=== PATIENT | male | born 1950 | race Caucasian/White ===

== ENCOUNTER 2016-12-21 15:44 | Inpatient (IN) | payer OTHER ==
--- NOTE | 2016-12-21 16:00 | PCM.HP ---
H&P History of Present Illness - General Date of Service: 12/21/16 Admit Problem/Dx: Pyelonephritis Source of Information: Patient, Family, Old Records, Provider, RN Notes Reviewed , Significant Other History Limitations: Reports: No Limitations - History of Present Illness Initial Comments - Free Text/Narative: This is a 66-year-old white male with past medical history of hypertension, hyperlipidemia, history of paroxysmal atrial fibrillation on digoxin and eliquis , and history of sick sinus syndrome status post pacemaker placement who comes in for a direct admit due to bilateral pyelonephritis. Patient was recently seen in his primary care's office for initial workup of urinary issues. Patient carries history of BPH and urinary retention. He follows Dr. Lopez for his urologic issues. Back in September, he was doing self catheterization and was eventually stop at the end of October. He is currently on Flomax and Proscar for maintenance medications. About 4 weeks ago, the patient had urinary tract infection. He was treated with antibiotic and 2 weeks follow up issues negative UA. However, recently he again developed the same symptoms associated with hematuria and was also noted to have a fever of 104. His initial workup from the clinical available documents shows a CBC remarkable for hemoglobin of 10.6, hematocrit of 32.2, neutrophil absolute counts of 8.1, and ESR of 95. His chemistry is remarkable for glucose of 139, sodium of 129, chloride of 93, albumin of 2.2 and alkaline phosphatase of 130. His UA shows moderate blood urine, proteinuria, positive nitrite/leukocyte esterase is large and WBC of 51-200 and many bacteria. Patient is being admitted for treatment of pyelonephritis. He is full code. Abdominal Pain Score (Numeric/FACES): 5 - Related Data Allergies/Adverse Reactions: Allergies Allergy/AdvReac Type Severity Reaction Status Date / Time No Known Allergies Allergy Verified 09/17/15 17:27 Home Medications: Home Meds Apixaban [Eliquis] 5 mg PO BID 02/07/15 [History] Cholecalciferol (Vitamin D3) [Vitamin D3] 1,000 unit PO DAILY 02/07/15 [History] Cyanocobalamin (Vitamin B12) [Vitamin B12] 1,000 mcg PO DAILY 02/07/15 [History] Finasteride [Proscar] 5 mg PO BEDTIME 02/07/15 [History] Glucosamine/D3/Boswellia Eliane [Osteo Bi-Flex Caplet] 2 each PO DAILY 02/07/15 [ History] Losartan/Hydrochlorothiazide [Losartan-HCTZ 50-12.5 MG] 25 mg PO DAILY 02/07/15 [History] Omeprazole [Prilosec] 40 mg PO DAILY 02/07/15 [History] Tamsulosin [Flomax] 0.4 mg PO BEDTIME 02/07/15 [History] rOPINIRole [Requip] 0.5 mg PO BID 09/17/15 [History] Allopurinol [Zyloprim] 100 mg PO DAILY 12/21/16 [History] Diltiazem [Dilacor XR] 240 mg PO DAILY 12/21/16 [History] Dulaglutide [Trulicity] 1.5 mg SQ TH 12/21/16 [History] Metoprolol Tartrate 25 mg PO QAM 12/21/16 [History] Metoprolol Tartrate 50 mg PO QPM 12/21/16 [History] Rosuvastatin Calcium [Crestor] 40 mg PO DAILY 12/21/16 [History] Past Medical History Cardiovascular History: Reports: Other (See Below) Other Cardiovascular History: aflutter Gastrointestinal History: Reports: GERD Genitourinary History: Reports: Other (See Below) Other Genitourinary History: enlarged prostate - Infectious Disease History Infectious Disease History: Reports: Measles, Mumps - Past Surgical History HEENT Surgical History: Reports: Tonsillectomy Other Musculoskeletal Surgeries/Procedures:: neck and back surgery Social & Family History - Family History Family Medical History: Noncontributory - Tobacco Use Smoking Status *Q: Former Smoker Years of Tobacco use: 40 Used Tobacco, but Quit: No Month Tobacco Last Used: 02/2015 Second Hand Smoke Exposure: No - Alcohol Use Days Per Week of Alcohol Use: 5 Number of Drinks Per Day: 3 Total Drinks Per Week: 15 - Recreational Drug Use Recreational Drug Use: No H&P Review of Systems - Review of Systems: Review Of Systems: See Below General: Reports: Malaise, Weakness, Fatigue, Decreased Appetite. Denies: Fever HEENT: Reports: No Symptoms Pulmonary: Denies: Shortness of Breath Cardiovascular: Denies: Chest Pain Gastrointestinal: Reports: Decreased Appetite, Other (gas and bloating). Denies : Abdominal Pain, Difficulty Swallowing, Nausea, Vomiting Genitourinary: Reports: Dysuria, Urgency, Hematuria, Retention, Flank Pain Musculoskeletal: Reports: No Symptoms Skin: Reports: No Symptoms. Denies: Rash, Erythema Psychiatric: Denies: Depression, Anxiety, Hallucinations, Suicidal Ideation Neurological: Reports: No Symptoms Hematologic/Lymphatic: Reports: No Symptoms Immunologic: Reports: No Symptoms Exam - Exam Exam: See Below - Vital Signs Weight: 87.997 kg - Exam General: Alert, Oriented, Cooperative. No: Mild Distress HEENT: Conjunctiva Clear, EACs Clear, EOMI, Hearing Intact, Mucosa Moist & [place] , Nares Patent, Normal Nasal Septum, Posterior Pharynx Clear, Pupils Equal, Pupils Reactive, TMs Clear Neck: Supple, Trachea Midline Lungs: Clear to Auscultation, Normal Respiratory Effort Cardiovascular: Regular Rate, Regular Rhythm GI/Abdominal Exam: Normal Bowel Sounds, Soft, Non-Tender, No Organomegaly, No Distention, No Abnormal Bruit, No Mass, Pelvis Stable, Other (tight and round) (Male) Exam: Deferred Rectal (Males) Exam: Deferred Back Exam: Normal Inspection, Decreased Range of Motion Extremities: Normal Inspection, Normal Range of Motion, Non-Tender, No Pedal Edema, Normal Capillary Refill Peripheral Pulses: 2+: Dorsalis Pedis (L), Dorsalis Pedis (R) Skin: Warm, Dry, Intact Neuro Extensive - Mental Status: Oriented x3, Normal Cognition, Memory Intact Neuro Extensive - Motor, Sensory, Reflexes: CN II-XII Intact, Normal Gait Psychiatric: Alert, Normal Affect, Normal Mood *Q Meaningful Use (ADM) - VTE *Q VTE Criteria *Q: - Stroke *Q Stroke Criteria *Q: - AMI *Q AMI Criteria *Q: Problem List Initiated/Reviewed/Updated: Yes Assessment/Plan Comment:: Assessment/Plan: Acute: Bilateral Pyelonephritis - CVA pos on both sides - Risk factors: BPH and Urinary Retention - He used to self-cath in September, was stopped at the end of October this year - He follows Dr. Lopez for his urologic issues - UA pos for UTI from the clinic - Start IV Levaquin - UA Cx/Sx BPH with Urinary Retention - Continue flomax and proscar Hyperglycemia with DM2 - BS 139 - On insulin regimen - A1C in AM - ISS and Accu-check Hyponatremia - Na 129 - He is on HCTZ, no SSRI - IV fluid hydration - Salt tablet 1 tab po x 3 doses only Gas/Bloating - Simethicone Q6 PRN - Dietary consult for less gas diet Chronic: PAF on eliquis, HR controlled HTN CAD HLD BPH DM2 Hx/o S3 S/p [employer] RLS Vit D and B12 Deficiency Plan: Admit to Med-Surg w/ Tele Routine AM Labs Resume Home Meds SW/CM for d/c planning Code status: 1
[2016-12-21] MEDS ORDERED: HYDROmorphone 1 MG/ML Syringe IVPUSH PRN (16:57)
[2016-12-21] MEDS ORDERED: Polyethylene Glycol 3350 Powder 17 GM Packet PO PRN (16:57)
[2016-12-21] MEDS ORDERED: Promethazine 12.5 MG in Sodium Chloride 0.9% 50 ML IV PRN (16:57)
[2016-12-21] MEDS ORDERED: Acetaminophen 325 MG Tab PO PRN (16:57)
[2016-12-21] MEDS ORDERED: Docusate Sodium 100 MG Cap PO PRN (16:57)
[2016-12-21] MEDS ORDERED: Bisacodyl 5 MG Tab PO PRN (16:57)
[2016-12-21] MEDS ORDERED: Acetaminophen/HYDROcodone 325-5 MG Tab PO PRN (16:57)
[2016-12-21] MEDS ORDERED: LORazepam 2 MG/ML MDV IV PRN (16:57)
[2016-12-21] MEDS ORDERED: Albuterol/Ipratropium 3.0-0.5 MG/3 ML Neb Soln NEB PRN (16:57)
[2016-12-21] MEDS ORDERED: Ondansetron 4 MG/2 ML SDV IV PRN (16:57)
[2016-12-21] MEDS ORDERED: Levofloxacin/Dextrose 5%-Water 750 MG in Premix Bag 1 BAG IV ONE (17:01)
[2016-12-21] MEDS ORDERED: Metoprolol Tartrate 5 MG/5 ML SDV IVPUSH PRN (17:01)
[2016-12-21] MEDS ORDERED: hydrALAZINE 20 MG/ML SDV IVPUSH PRN (17:01)
[2016-12-21] MEDS ORDERED: Simethicone 80 MG Tab.Chew PO PRN (17:06)
[2016-12-21] MEDS: Saccharomyces Boulardii (Probiotic) 250 MG Cap PO ONE ×2 (18:20→18:55)
[2016-12-21] MEDS: Phenazopyridine 95 MG Tab PO SCH (18:21)
[2016-12-21] MEDS ORDERED: Saccharomyces Boulardii (Probiotic) 250 MG Cap PO ONE (19:00)
[2016-12-21] MEDS ORDERED: DULAGLUTIDE 1.5 MG SQ SCH (19:30)
[2016-12-21] MEDS ORDERED: 50% Dextrose in Water 50 ML Syringe IVPUSH PRN (19:30)
[2016-12-21] MEDS: Sodium Chloride 0.9% 1,000 ML IV SCH (19:57)
[2016-12-21] MEDS: rOPINIRole 0.25 MG Tab PO SCH (20:20)
[2016-12-21] MEDS: Finasteride 5 MG Tab PO SCH (20:21)
[2016-12-21] MEDS: Tamsulosin 0.4 MG Cap.ER PO SCH (20:21)
[2016-12-21] MEDS: Apixaban 5 MG Tab PO SCH (20:21)
[2016-12-21] MEDS: Simvastatin 10 MG Tab PO SCH (20:22)
[2016-12-21] MEDS ORDERED: Metoprolol Tartrate 25 MG Tab PO SCH (21:00)
[2016-12-21] MEDS ORDERED: Potassium Chloride/Sodium Chloride Tab PO PRN (21:00)
[2016-12-21] MEDS: Temazepam 15 MG Cap PO PRN (21:04)
[2016-12-21] MEDS: Simethicone 80 MG Tab.Chew PO SCH (21:05)
[2016-12-21] MEDS: Insulin Aspart 100 Units/ML 3 ML Pen SUBCUT SCH (21:23)
[2016-12-21] MEDS ORDERED: rOPINIRole 0.5 MG Tab PO PRN (23:20)
[2016-12-22] MEDS: Sodium Chloride 0.9% 1,000 ML IV SCH ×3 (03:25→20:13)
[2016-12-22] MEDS: Pantoprazole 40 MG Tab.CR PO SCH (06:06)
[2016-12-22] MEDS: Simethicone 80 MG Tab.Chew PO SCH ×4 (06:06→21:28)
[2016-12-22] MEDS: Insulin Aspart 100 Units/ML 3 ML Pen SUBCUT SCH ×4 (06:10→21:23)
[2016-12-22] MEDS ORDERED: HYDROmorphone 0.5 MG/0.5 ML Syringe IVPUSH PRN (08:00)
[2016-12-22] MEDS ORDERED: Magnesium Sulfate/Water 2 GM in Premix Bag 1 BAG IV ONE (08:00)
[2016-12-22] MEDS ORDERED: Losartan 25 MG Tab PO SCH (09:00)
[2016-12-22] MEDS ORDERED: Diltiazem 240 MG Cap.ER PO SCH (09:00)
[2016-12-22] MEDS ORDERED: HYDROCHLOROTHIAZIDE PO SCH (09:00)
[2016-12-22] MEDS ORDERED: Digoxin 125 MCG Tab PO SCH (09:00)
[2016-12-22] MEDS ORDERED: OSTEO BI FLEX PO SCH (09:00)
[2016-12-22] MEDS ORDERED: Rosuvastatin 10 MG Tab PO SCH (09:00)
[2016-12-22] MEDS ORDERED: LOSARTAN PO SCH (09:00)
[2016-12-22] MEDS ORDERED: Levofloxacin/Dextrose 5%-Water 750 MG in Premix Bag 1 BAG IV SCH (09:00)
[2016-12-22] MEDS ORDERED: Cholecalciferol (Vitamin D3) 1,000 Unit Tab PO SCH (09:00)
[2016-12-22] MEDS: Apixaban 5 MG Tab PO SCH ×2 (09:38→21:29)
[2016-12-22] MEDS: Phenazopyridine 95 MG Tab PO SCH ×3 (09:38→18:34)
[2016-12-22] MEDS: Losartan 25 MG Tab PO SCH (09:39)
[2016-12-22] MEDS: Cyanocobalamin (Vitamin B12) 1,000 MCG Tab PO SCH (09:40)
[2016-12-22] MEDS: Metoprolol Tartrate 25 MG Tab PO SCH (09:40)
[2016-12-22] MEDS: Allopurinol 100 MG Tab PO SCH (09:41)
[2016-12-22] MEDS: Saccharomyces Boulardii (Probiotic) 250 MG Cap PO SCH (09:41)
[2016-12-22] MEDS: Cholecalciferol (Vitamin D3) 1,000 Unit Tab PO SCH (09:41)
[2016-12-22] MEDS ORDERED: rOPINIRole 0.25 MG Tab PO PRN (09:43)
--- NOTE | 2016-12-22 11:36 | PCM.PN ---
- General Info Date of Service: 12/22/16 Functional Status: Reports: Tolerating Diet, Ambulating - Review of Systems General: Reports: No Symptoms HEENT: Reports: No Symptoms Pulmonary: Reports: No Symptoms Cardiovascular: Reports: No Symptoms Gastrointestinal: Reports: Decreased Appetite, Other (bloating) Genitourinary: Reports: No Symptoms Musculoskeletal: Reports: No Symptoms Skin: Reports: No Symptoms Neurological: Reports: No Symptoms Psychiatric: Reports: No Symptoms - Patient Data Vitals - most recent: Last Vital Signs Temp 37.1 C 12/22/16 08:19 Pulse 68 12/22/16 09:40 Resp 15 12/22/16 08:19 BP 127/98 H 12/22/16 09:40 Pulse Ox 96 12/22/16 08:19 Weight - most recent: 86.137 kg I&O - last 24 hours: Intake & Output 12/21/16 12/22/16 12/22/16 22:59 06:59 14:59 Intake Total 240 3061 300 Output Total 1900 Balance 240 1161 300 Lab Results last 24 hrs: Laboratory Results - last 24 hr 12/21/16 12/22/16 12/22/16 Range/Units 20:48 05:53 05:53 WBC 7.36 (4.23-9.07) K/mm3 RBC 3.34 L (4.63-6.08) M/mm3 Hgb 9.6 L (13.7-17.5) gm/L Hct 28.5 L (40.1-51.0) % MCV 85.3 (79.0-92.2) fl MCH 28.7 (25.7-32.2) pg MCHC 33.7 (32.2-35.5) g/dl RDW Std Deviation 49.3 H (35.1-43.9) fL Plt Count 215 (163-337) K/mm3 MPV 10.0 (9.4-12.3) fl Neut % (Auto) 87.7 H (34.0-67.9) % Lymph % (Auto) 3.5 L (21.8-53.1) % [place] % (Auto) 8.2 (5.3-12.2) % Eos % (Auto) 0.3 L (0.8-7.0) Baso % (Auto) 0.0 L (0.1-1.2) % Neut # (Auto) 6.46 H (1.78-5.38) K/mm3 Lymph # (Auto) 0.26 L (1.32-3.57) K/mm3 [place] # (Auto) 0.60 (0.30-0.82) K/mm3 Eos # (Auto) 0.02 L (0.04-0.54) K/mm3 Baso # (Auto) 0.00 L (0.01-0.08) K/mm3 Manual Slide Review Abnormal smear Sodium 135 L (136-145) mEq/L Potassium 3.7 (3.5-5.1) mEq/L Chloride 102 (98-107) mEq/L Carbon Dioxide 25 (21-32) mEq/L Anion Gap 11.7 (5-15) BUN 14 (7-18) mg/dL Creatinine 1.3 (0.7-1.3) mg/dL Est Cr Clr Drug Dosing 57.41 mL/min Estimated GFR (MDRD) 56 (>60) mL/min BUN/Creatinine Ratio 10.8 L (14-18) Glucose 147 H (80-115) mg/dL POC Glucose 182 H (80-115) mg/dL Hemoglobin A1c (4.50-6.20) % Calcium 8.2 L (8.5-10.1) mg/dL Magnesium 1.5 L (1.8-2.4) mg/dl C-Reactive Protein 27.3 H* (<1.0) mg/dL 12/22/16 12/22/16 12/22/16 Range/Units 05:53 06:10 11:03 WBC (4.23-9.07) K/mm3 RBC (4.63-6.08) M/mm3 Hgb (13.7-17.5) gm/L Hct (40.1-51.0) % MCV (79.0-92.2) fl MCH (25.7-32.2) pg MCHC (32.2-35.5) g/dl RDW Std Deviation (35.1-43.9) fL Plt Count (163-337) K/mm3 MPV (9.4-12.3) fl Neut % (Auto) (34.0-67.9) % Lymph % (Auto) (21.8-53.1) % [place] % (Auto) (5.3-12.2) % Eos % (Auto) (0.8-7.0) Baso % (Auto) (0.1-1.2) % Neut # (Auto) (1.78-5.38) K/mm3 Lymph # (Auto) (1.32-3.57) K/mm3 [place] # (Auto) (0.30-0.82) K/mm3 Eos # (Auto) (0.04-0.54) K/mm3 Baso # (Auto) (0.01-0.08) K/mm3 Manual Slide Review Sodium (136-145) mEq/L Potassium (3.5-5.1) mEq/L Chloride (98-107) mEq/L Carbon Dioxide (21-32) mEq/L Anion Gap (5-15) BUN (7-18) mg/dL Creatinine (0.7-1.3) mg/dL Est Cr Clr Drug Dosing mL/min Estimated GFR (MDRD) (>60) mL/min BUN/Creatinine Ratio (14-18) Glucose (80-115) mg/dL POC Glucose 142 H 137 H (80-115) mg/dL Hemoglobin A1c 7.20 H (4.50-6.20) % Calcium (8.5-10.1) mg/dL Magnesium (1.8-2.4) mg/dl C-Reactive Protein (<1.0) mg/dL Buck Results last 24 hrs: Microbiology 12/21/16 18:00 Aerobic Blood Culture - Preliminary Blood - Venous - Lab Draw Gram Negative Rods Anaerobic Blood Culture - Preliminary Gram Negative Rods 12/21/16 17:50 Aerobic Blood Culture - Preliminary Blood - Venous Gram Negative Rods Anaerobic Blood Culture - Preliminary Gram Negative Rods Med Orders - Current: Current Medications Acetaminophen (Tylenol) 650 mg PO Q4H PRN PRN Reason: Pain (Mild 1-3)/fever Last Admin: 12/21/16 18:36 Dose: 650 mg Hydrocodone Bitart/Acetaminophen ([place] 325-5 Mg) 1 tab PO Q4H PRN PRN Reason: Pain (moderate 4-6) Albuterol/Ipratropium (Duoneb 3.0-0.5 Mg/3 Ml) 3 ml NEB Q4H PRN PRN Reason: Shortness Of Breath/wheezing Allopurinol (Zyloprim) 100 mg PO DAILY [facility] Last Admin: 12/22/16 09:41 Dose: 100 mg Apixaban (Eliquis) 5 mg PO BID [facility] Last Admin: 12/22/16 09:38 Dose: 5 mg Bisacodyl (Dulcolax) 5 mg PO DAILY PRN PRN Reason: Constipation Cholecalciferol (Vitamin D3) 2,000 units PO DAILY [facility] Last Admin: 12/22/16 09:41 Dose: 2,000 units Cyanocobalamin (Vitamin B12) 1,000 mcg PO DAILY [facility] Last Admin: 12/22/16 09:40 Dose: 1,000 mcg Dextrose/Water (Dextrose 50% In Water) 50 ml IVPUSH ASDIRECTED PRN PRN Reason: Hypoglycemia Digoxin (Lanoxin) 125 mcg PO DAILY@1200 [place] Diltiazem HCl (Dilacor Xr) 240 mg PO DAILY [facility] Docusate Sodium (Colace) 100 mg PO BID PRN PRN Reason: Constipation Finasteride (Proscar) 5 mg PO BEDTIME [facility] Last Admin: 12/21/16 20:21 Dose: 5 mg Hydralazine HCl (Apresoline) 20 mg IVPUSH Q4H PRN PRN Reason: Hypertension Hydromorphone HCl (Dilaudid) 0.25 mg IVPUSH Q2H PRN PRN Reason: Pain (severe 7-10) Levofloxacin/Dextrose 750 mg/ (Premix) 150 mls @ 100 mls/hr IV Q24H [facility] Promethazine HCl 12.5 mg/ (Sodium Chloride) 50.5 mls @ 100 mls/hr IV Q6H PRN PRN Reason: Nausea/Vomiting Sodium Chloride (Normal Saline) 1,000 mls @ 125 mls/hr IV ASDIRECTED [facility] Last Admin: 12/22/16 03:25 Dose: 125 mls/hr Insulin Aspart (Novolog) 0 unit SUBCUT QIDACANDBED [facility] PRN Reason: Protocol Last Admin: 12/22/16 11:05 Dose: Not Given Lorazepam (Ativan) 1 mg IV Q6H PRN PRN Reason: Anxiety Losartan Potassium (Cozaar) 25 mg PO DAILY [facility] Last Admin: 12/22/16 09:39 Dose: 25 mg Magnesium Sulfate (Pharmacy To Dose - Magnesium Replacement) 1 dose .XX ASDIRECTED [facility] Metoprolol Tartrate (Lopressor) 5 mg IVPUSH Q4H PRN PRN Reason: Tachycardia Metoprolol Tartrate (Lopressor) 25 mg PO QAM [facility] Last Admin: 12/22/16 09:40 Dose: 25 mg Metoprolol Tartrate (Lopressor) 50 mg PO QPM [facility] Ondansetron HCl (Zofran) 4 mg IV Q6H PRN PRN Reason: Nausea/Vomiting Oral Electrolytes (Thermotabs) 1 each PO TID PRN PRN Reason: Other Pantoprazole Sodium (Protonix) 40 mg PO DAILY@0700 [facility] Last Admin: 12/22/16 06:06 Dose: 40 mg Phenazopyridine HCl (Urinary Pain Relief) 95 mg PO TIDPC [facility] Last Admin: 12/22/16 09:38 Dose: 95 mg Polyethylene Glycol (Miralax) 17 gm PO DAILY PRN PRN Reason: Constipation Potassium Chloride (Pharmacy To Dose - Potassium Replacement) 1 dose .XX ASDIRECTED [facility] Ropinirole HCl (Requip) 0.5 mg PO BEDTIME [facility] Last Admin: 12/21/16 20:20 Dose: 0.5 mg Ropinirole HCl (Requip) 0.5 mg PO BEDTIME PRN PRN Reason: Other Rosuvastatin Calcium (Crestor) 40 mg PO BEDTIME [facility] Saccharomyces Boulardii (Florastor) 500 mg PO DAILY [facility] Last Admin: 12/22/16 09:41 Dose: 500 mg Senna/Docusate Sodium (Senna Plus) 1 tab PO BID PRN PRN Reason: Constipation Simethicone (Simethicone) 80 mg PO QIDACANDBED [facility] Last Admin: 12/22/16 06:06 Dose: 80 mg Simvastatin (Zocor) 10 mg PO BEDTIME [facility] Last Admin: 12/21/16 20:22 Dose: 10 mg Tamsulosin HCl (Flomax) 0.4 mg PO BEDTIME [facility] Last Admin: 12/21/16 20:21 Dose: 0.4 mg Temazepam (Restoril) 15 mg PO BEDTIME PRN PRN Reason: Sleep Last Admin: 12/21/16 21:04 Dose: 15 mg Discontinued Medications Digoxin (Lanoxin) 125 mcg PO DAILY [facility] Diltiazem HCl (Dilacor Xr) 240 mg PO DAILY [facility] Last Admin: 12/22/16 09:31 Dose: Not Given Hydromorphone HCl (Dilaudid) 0.25 mg IVPUSH Q2H PRN PRN Reason: Pain (severe 7-10) Last Admin: 12/21/16 20:10 Dose: 0.25 mg Levofloxacin/Dextrose 750 mg/ (Premix) 150 mls @ 100 mls/hr IV ONETIME ONE Stop: 12/21/16 18:30 Last Admin: 12/21/16 18:15 Dose: 100 mls/hr Magnesium Sulfate 2 gm/ Premix 50 mls @ 25 mls/hr IV ONETIME ONE Stop: 12/22/16 09:59 Last Admin: 12/22/16 09:46 Dose: 25 mls/hr Losartan Potassium (Cozaar) 25 mg PO DAILY [facility] Metoprolol Tartrate (Lopressor) 12.5 mg PO BID [facility] Last Admin: 12/21/16 20:22 Dose: 12.5 mg NonformTrulicity (1.5 Mg) 1.5 mg SQ TH [facility] Last Admin: 12/21/16 22:20 Dose: Not Given Ropinirole HCl (Requip) 0.5 mg PO BEDTIME PRN PRN Reason: Other Rosuvastatin Calcium (Crestor) 40 mg PO DAILY [facility] Saccharomyces Boulardii (Florastor) 500 mg PO ONETIME ONE Stop: 12/21/16 17:06 Last Admin: 12/21/16 18:55 Dose: 250 mg Saccharomyces Boulardii (Florastor) 250 mg PO ONETIME ONE Stop: 12/21/16 19:01 Last Admin: 12/21/16 19:27 Dose: 250 mg Simethicone (Simethicone) 80 mg PO Q6H PRN PRN Reason: Gas - Exam Quality Assessment: DVT prophylaxis General: alert, oriented, cooperative, no acute distress HEENT: Pupils equal, Pupils reactive, EOMI, Mucous membr. moist/pink Neck: supple, trachea midline Lungs: Normal Respiratory Effort Cardiovascular: Regular Rate, Regular Rhythm GI/Abdominal Exam: Normal Bowel Sounds, Soft, Non-Tender, No Organomegaly (Male) Exam: Deferred Back Exam: Normal Inspection Extremities: Normal Inspection Skin: warm Neurological: no new focal deficit, normal speech Psy/Mental Status: alert, normal affect, normal mood - Problem List Review Problem List Initiated/Reviewed/Updated: Yes - Plan Plan:: Assessment/Plan: Acute: Bilateral Pyelonephritis - CVA pos on both sides - Risk factors: BPH and Urinary Retention - He used to self-cath in September, was stopped at the end of October this year - He follows Dr. Lopez for his urologic issues - UA pos for UTI from the clinic - Start IV Levaquin - UA Cx/Sx-->G neg rods BPH with Urinary Retention - Continue flomax and proscar Hyperglycemia with DM2 - BS 139 - On insulin regimen - A1C in AM - ISS and Accu-check Hyponatremia - Na 129 - He is on HCTZ, no SSRI - IV fluid hydration - Salt tablet 1 tab po x 3 doses only Gas/Bloating - Simethicone Q6 PRN - Dietary consult for less gas diet Chronic: PAF on eliquis, HR controlled HTN CAD HLD BPH DM2 Hx/o S3 S/p [employer] RLS Vit D and B12 Deficiency Plan: Med-Surg w/ Tele IV ATBs Routine AM Labs Resume Home Meds SW/CM for d/c planning Code status: 1
[2016-12-22] MEDS: Digoxin 125 MCG Tab PO SCH (11:39)
[2016-12-22] MEDS: Diltiazem 240 MG Cap.ER PO SCH (16:37)
[2016-12-22] MEDS: Simvastatin 10 MG Tab PO SCH (21:28)
[2016-12-22] MEDS: Tamsulosin 0.4 MG Cap.ER PO SCH (21:28)
[2016-12-22] MEDS: rOPINIRole 0.25 MG Tab PO SCH (21:28)
[2016-12-22] MEDS: Metoprolol Tartrate 50 MG Tab PO SCH (21:29)
[2016-12-22] MEDS: Rosuvastatin 10 MG Tab PO SCH (21:29)
[2016-12-22] MEDS: Finasteride 5 MG Tab PO SCH (21:29)
[2016-12-23] MEDS: Sodium Chloride 0.9% 1,000 ML IV SCH (04:20)
[2016-12-23] MEDS: Simethicone 80 MG Tab.Chew PO SCH ×4 (06:20→21:18)
[2016-12-23] MEDS: Pantoprazole 40 MG Tab.CR PO SCH (06:20)
[2016-12-23] MEDS: Insulin Aspart 100 Units/ML 3 ML Pen SUBCUT SCH ×4 (06:26→21:02)
[2016-12-23] MEDS: Cholecalciferol (Vitamin D3) 1,000 Unit Tab PO SCH (09:13)
[2016-12-23] MEDS: Cyanocobalamin (Vitamin B12) 1,000 MCG Tab PO SCH (09:13)
[2016-12-23] MEDS: Phenazopyridine 95 MG Tab PO SCH ×2 (09:13→13:19)
[2016-12-23] MEDS: Saccharomyces Boulardii (Probiotic) 250 MG Cap PO SCH (09:13)
[2016-12-23] MEDS: Allopurinol 100 MG Tab PO SCH (09:14)
[2016-12-23] MEDS: Apixaban 5 MG Tab PO SCH ×2 (09:14→21:00)
[2016-12-23] MEDS: Losartan 25 MG Tab PO SCH (09:23)
[2016-12-23] MEDS: Metoprolol Tartrate 25 MG Tab PO SCH (09:23)
[2016-12-23] MEDS: cefTRIAXone 2 GM in Sodium Chloride 0.9% 100 ML IV SCH (09:34)
[2016-12-23] MEDS: Digoxin 125 MCG Tab PO SCH (12:00)
[2016-12-23] MEDS: Metoclopramide 10 MG/2 ML SDV IVPUSH SCH ×2 (13:30→20:54)
[2016-12-23] MEDS: Diltiazem 240 MG Cap.ER PO SCH (15:32)
[2016-12-23] MEDS: Metoprolol Tartrate 50 MG Tab PO SCH (21:00)
[2016-12-23] MEDS: Rosuvastatin 10 MG Tab PO SCH (21:00)
[2016-12-23] MEDS: Tamsulosin 0.4 MG Cap.ER PO SCH (21:01)
[2016-12-23] MEDS: Simvastatin 10 MG Tab PO SCH (21:01)
[2016-12-23] MEDS: Temazepam 15 MG Cap PO PRN (21:01)
[2016-12-23] MEDS: Finasteride 5 MG Tab PO SCH (21:01)
[2016-12-23] MEDS: rOPINIRole 0.25 MG Tab PO SCH (21:01)
[2016-12-24] MEDS: Metoclopramide 10 MG/2 ML SDV IVPUSH SCH ×4 (02:46→20:40)
[2016-12-24] MEDS: Simethicone 80 MG Tab.Chew PO SCH ×4 (06:29→21:02)
[2016-12-24] MEDS: Pantoprazole 40 MG Tab.CR PO SCH (06:29)
[2016-12-24] MEDS: Insulin Aspart 100 Units/ML 3 ML Pen SUBCUT SCH ×4 (06:30→21:01)
[2016-12-24] MEDS: Losartan 25 MG Tab PO SCH (08:53)
[2016-12-24] MEDS: Cyanocobalamin (Vitamin B12) 1,000 MCG Tab PO SCH (08:53)
[2016-12-24] MEDS: Cholecalciferol (Vitamin D3) 1,000 Unit Tab PO SCH (08:53)
[2016-12-24] MEDS: Allopurinol 100 MG Tab PO SCH (08:54)
[2016-12-24] MEDS: Metoprolol Tartrate 25 MG Tab PO SCH (08:54)
[2016-12-24] MEDS: Apixaban 5 MG Tab PO SCH ×2 (08:55→20:40)
[2016-12-24] MEDS: Saccharomyces Boulardii (Probiotic) 250 MG Cap PO SCH (08:55)
[2016-12-24] MEDS: cefTRIAXone 2 GM in Sodium Chloride 0.9% 100 ML IV SCH (09:18)
[2016-12-24] MEDS: Digoxin 125 MCG Tab PO SCH (11:02)
[2016-12-24] MEDS ORDERED: Magnesium Sulfate/Water 2 GM in Premix Bag 1 BAG IV ONE (12:56)
--- NOTE | 2016-12-24 13:07 | PCM.PN ---
- General Info Date of Service: 12/24/16 Functional Status: Reports: Pain Controlled, Tolerating Diet (decreased intake with bloating), Ambulating, Urinating - Review of Systems General: Reports: No Symptoms HEENT: Reports: No Symptoms Pulmonary: Reports: No Symptoms Cardiovascular: Reports: No Symptoms Gastrointestinal: Reports: No Symptoms Genitourinary: Reports: No Symptoms Musculoskeletal: Reports: No Symptoms Skin: Reports: No Symptoms Neurological: Reports: No Symptoms Psychiatric: Reports: No Symptoms - Patient Data Vitals - most recent: Last Vital Signs Temp 35.9 C 12/24/16 09:35 Pulse 58 L 12/24/16 09:35 Resp 14 12/24/16 09:35 BP 136/72 12/24/16 09:35 Pulse Ox 97 12/24/16 09:35 Weight - most recent: 86.137 kg I&O - last 24 hours: Intake & Output 12/23/16 12/24/16 12/24/16 22:59 06:59 14:59 Intake Total 1900 900 Output Total 2150 1550 Balance -250 -650 Lab Results last 24 hrs: Laboratory Results - last 24 hr 12/23/16 12/23/16 12/24/16 Range/Units 17:04 20:52 05:45 WBC 5.97 (4.23-9.07) K/mm3 RBC 3.46 L (4.63-6.08) M/mm3 Hgb 9.6 L (13.7-17.5) gm/L Hct 29.8 L (40.1-51.0) % MCV 86.1 (79.0-92.2) fl MCH 27.7 (25.7-32.2) pg MCHC 32.2 (32.2-35.5) g/dl RDW Std Deviation 50.3 H (35.1-43.9) fL Plt Count 318 (163-337) K/mm3 MPV 9.4 (9.4-12.3) fl Neut % (Auto) 81.5 H (34.0-67.9) % Lymph % (Auto) 8.0 L (21.8-53.1) % [place] % (Auto) 9.2 (5.3-12.2) % Eos % (Auto) 1.0 (0.8-7.0) Baso % (Auto) 0.0 L (0.1-1.2) % Neut # (Auto) 4.86 (1.78-5.38) K/mm3 Lymph # (Auto) 0.48 L (1.32-3.57) K/mm3 Hunt # (Auto) 0.55 (0.30-0.82) K/mm3 Eos # (Auto) 0.06 (0.04-0.54) K/mm3 Baso # (Auto) 0.00 L (0.01-0.08) K/mm3 Manual Slide Review Abnormal smear Sodium (136-145) mEq/L Potassium (3.5-5.1) mEq/L Chloride (98-107) mEq/L Carbon Dioxide (21-32) mEq/L Anion Gap (5-15) BUN (7-18) mg/dL Creatinine (0.7-1.3) mg/dL Est Cr Clr Drug Dosing mL/min Estimated GFR (MDRD) (>60) mL/min BUN/Creatinine Ratio (14-18) Glucose (80-115) mg/dL POC Glucose 108 143 H (80-115) mg/dL Calcium (8.5-10.1) mg/dL Magnesium (1.8-2.4) mg/dl 12/24/16 12/24/16 12/24/16 Range/Units 05:45 06:29 10:58 WBC (4.23-9.07) K/mm3 RBC (4.63-6.08) M/mm3 Hgb (13.7-17.5) gm/L Hct (40.1-51.0) % MCV (79.0-92.2) fl MCH (25.7-32.2) pg MCHC (32.2-35.5) g/dl RDW Std Deviation (35.1-43.9) fL Plt Count (163-337) K/mm3 MPV (9.4-12.3) fl Neut % (Auto) (34.0-67.9) % Lymph % (Auto) (21.8-53.1) % Hunt % (Auto) (5.3-12.2) % Eos % (Auto) (0.8-7.0) Baso % (Auto) (0.1-1.2) % Neut # (Auto) (1.78-5.38) K/mm3 Lymph # (Auto) (1.32-3.57) K/mm3 Hunt # (Auto) (0.30-0.82) K/mm3 Eos # (Auto) (0.04-0.54) K/mm3 Baso # (Auto) (0.01-0.08) K/mm3 Manual Slide Review Sodium 140 (136-145) mEq/L Potassium 3.4 L (3.5-5.1) mEq/L Chloride 105 (98-107) mEq/L Carbon Dioxide 25 (21-32) mEq/L Anion Gap 13.4 (5-15) BUN 8 (7-18) mg/dL Creatinine 1.2 (0.7-1.3) mg/dL Est Cr Clr Drug Dosing 62.19 mL/min Estimated GFR (MDRD) > 60 (>60) mL/min BUN/Creatinine Ratio 6.7 L (14-18) Glucose 123 H (80-115) mg/dL POC Glucose 121 H 126 H (80-115) mg/dL Calcium 8.4 L (8.5-10.1) mg/dL Magnesium 1.8 (1.8-2.4) mg/dl Buck Results last 24 hrs: Microbiology 12/21/16 18:00 Aerobic Blood Culture - Final Blood - Venous - Lab Draw Escherichia Coli Anaerobic Blood Culture - Final Escherichia Coli 12/21/16 17:50 Aerobic Blood Culture - Final Blood - Venous Escherichia Coli Anaerobic Blood Culture - Final Escherichia Coli Med Orders - Current: Current Medications Acetaminophen (Tylenol) 650 mg PO Q4H PRN PRN Reason: Pain (Mild 1-3)/fever Last Admin: 12/21/16 18:36 Dose: 650 mg Hydrocodone Bitart/Acetaminophen ([place] 325-5 Mg) 1 tab PO Q4H PRN PRN Reason: Pain (moderate 4-6) Last Admin: 12/22/16 21:34 Dose: 1 tab Albuterol/Ipratropium (Duoneb 3.0-0.5 Mg/3 Ml) 3 ml NEB Q4H PRN PRN Reason: Shortness Of Breath/wheezing Allopurinol (Zyloprim) 100 mg PO DAILY [facility] Last Admin: 12/24/16 08:54 Dose: 100 mg Apixaban (Eliquis) 5 mg PO BID [facility] Last Admin: 12/24/16 08:55 Dose: 5 mg Bisacodyl (Dulcolax) 5 mg PO DAILY PRN PRN Reason: Constipation Cholecalciferol (Vitamin D3) 2,000 units PO DAILY [facility] Last Admin: 12/24/16 08:53 Dose: 2,000 units Cyanocobalamin (Vitamin B12) 1,000 mcg PO DAILY [facility] Last Admin: 12/24/16 08:53 Dose: 1,000 mcg Dextrose/Water (Dextrose 50% In Water) 50 ml IVPUSH ASDIRECTED PRN PRN Reason: Hypoglycemia Digoxin (Lanoxin) 125 mcg PO DAILY@1200 [facility] Last Admin: 12/24/16 11:02 Dose: 125 mcg Diltiazem HCl (Dilacor Xr) 240 mg PO DAILY@1600 [facility] Last Admin: 12/23/16 15:32 Dose: 240 mg Docusate Sodium (Colace) 100 mg PO BID PRN PRN Reason: Constipation Finasteride (Proscar) 5 mg PO BEDTIME [facility] Last Admin: 12/23/16 21:01 Dose: 5 mg Hydralazine HCl (Apresoline) 20 mg IVPUSH Q4H PRN PRN Reason: Hypertension Hydromorphone HCl (Dilaudid) 0.25 mg IVPUSH Q2H PRN PRN Reason: Pain (severe 7-10) Ceftriaxone Sodium 2 gm/ (Sodium Chloride) 100 mls @ 200 mls/hr IV Q24H [facility] Last Admin: 12/24/16 09:18 Dose: 200 mls/hr Magnesium Sulfate 2 gm/ Premix 50 mls @ 25 mls/hr IV ONETIME ONE Stop: 12/24/16 14:55 Insulin Aspart (Novolog) 0 unit SUBCUT QIDACANDBED [facility] PRN Reason: Protocol Last Admin: 12/24/16 11:01 Dose: Not Given Lorazepam (Ativan) 1 mg IV Q6H PRN PRN Reason: Anxiety Losartan Potassium (Cozaar) 25 mg PO DAILY [facility] Last Admin: 12/24/16 08:53 Dose: 25 mg Metoclopramide HCl (Reglan) 10 mg IVPUSH Q6H [facility] Last Admin: 12/24/16 08:53 Dose: 10 mg Metoprolol Tartrate (Lopressor) 5 mg IVPUSH Q4H PRN PRN Reason: Tachycardia Metoprolol Tartrate (Lopressor) 25 mg PO QAM [facility] Last Admin: 12/24/16 08:54 Dose: 25 mg Metoprolol Tartrate (Lopressor) 50 mg PO BEDTIME [facility] Last Admin: 12/23/16 21:00 Dose: 50 mg Ondansetron HCl (Zofran) 4 mg IV Q6H PRN PRN Reason: Nausea/Vomiting Last Admin: 12/22/16 16:53 Dose: 4 mg Pantoprazole Sodium (Protonix) 40 mg PO DAILY@0700 [facility] [place] Last Admin: 12/24/16 06:29 Dose: 40 mg Polyethylene Glycol (Miralax) 17 gm PO DAILY PRN PRN Reason: Constipation Ropinirole HCl (Requip) 0.5 mg PO BEDTIME [facility] Last Admin: 12/23/16 21:01 Dose: 0.5 mg Ropinirole HCl (Requip) 0.5 mg PO BEDTIME PRN PRN Reason: Other Rosuvastatin Calcium (Crestor) 40 mg PO BEDTIME [facility] [place] Last Admin: 12/23/16 21:00 Dose: 40 mg Saccharomyces Boulardii (Florastor) 500 mg PO DAILY [facility] [place] Last Admin: 12/24/16 08:55 Dose: 500 mg Senna/Docusate Sodium (Senna Plus) 1 tab PO BID PRN PRN Reason: Constipation Simethicone (Simethicone) 80 mg PO QIDACANDBED [facility] [place] Last Admin: 12/24/16 11:02 Dose: 80 mg Simvastatin (Zocor) 10 mg PO BEDTIME [facility] Last Admin: 12/23/16 21:01 Dose: 10 mg Tamsulosin HCl (Flomax) 0.4 mg PO BEDTIME [facility] Last Admin: 12/23/16 21:01 Dose: 0.4 mg Temazepam (Restoril) 15 mg PO BEDTIME PRN PRN Reason: Sleep Last Admin: 12/23/16 21:01 Dose: 15 mg Discontinued Medications Digoxin (Lanoxin) 125 mcg PO DAILY [facility] Diltiazem HCl (Dilacor Xr) 240 mg PO DAILY [facility] Last Admin: 12/22/16 09:31 Dose: Not Given Hydromorphone HCl (Dilaudid) 0.25 mg IVPUSH Q2H PRN PRN Reason: Pain (severe 7-10) Last Admin: 12/21/16 20:10 Dose: 0.25 mg Levofloxacin/Dextrose 750 mg/ (Premix) 150 mls @ 100 mls/hr IV Q24H [facility] Last Admin: 12/22/16 11:44 Dose: 100 mls/hr Levofloxacin/Dextrose 750 mg/ (Premix) 150 mls @ 100 mls/hr IV ONETIME ONE Stop: 12/21/16 18:30 Last Admin: 12/21/16 18:15 Dose: 100 mls/hr Promethazine HCl 12.5 mg/ (Sodium Chloride) 50.5 mls @ 100 mls/hr IV Q6H PRN PRN Reason: Nausea/Vomiting Sodium Chloride (Normal Saline) 1,000 mls @ 125 mls/hr IV ASDIRECTED [facility] Last Admin: 12/23/16 04:20 Dose: 125 mls/hr Magnesium Sulfate 2 gm/ Premix 50 mls @ 25 mls/hr IV ONETIME ONE Stop: 12/22/16 09:59 Last Admin: 12/22/16 09:46 Dose: 25 mls/hr Losartan Potassium (Cozaar) 25 mg PO DAILY [facility] Magnesium Sulfate (Pharmacy To Dose - Magnesium Replacement) 1 dose .XX ASDIRECTED [facility] Metoprolol Tartrate (Lopressor) 12.5 mg PO BID [facility] Last Admin: 12/21/16 20:22 Dose: 12.5 mg NonformTrulicity (1.5 Mg) 1.5 mg SQ TH [facility] Last Admin: 12/21/16 22:20 Dose: Not Given Oral Electrolytes (Thermotabs) 1 each PO TID PRN PRN Reason: Other Phenazopyridine HCl (Urinary Pain Relief) 95 mg PO TIDPC [facility] [place] Last Admin: 12/23/16 13:19 Dose: Not Given Potassium Chloride (Pharmacy To Dose - Potassium Replacement) 1 dose .XX ASDIRECTED [facility] Ropinirole HCl (Requip) 0.5 mg PO BEDTIME PRN PRN Reason: Other Rosuvastatin Calcium (Crestor) 40 mg PO DAILY [facility] Saccharomyces Boulardii (Florastor) 500 mg PO ONETIME ONE Stop: 12/21/16 17:06 Last Admin: 12/21/16 18:55 Dose: 250 mg Saccharomyces Boulardii (Florastor) 250 mg PO ONETIME ONE Stop: 12/21/16 19:01 Last Admin: 12/21/16 19:27 Dose: 250 mg Simethicone (Simethicone) 80 mg PO Q6H PRN PRN Reason: Gas - Exam Quality Assessment: DVT prophylaxis General: alert, oriented, cooperative, no acute distress HEENT: Pupils equal, Pupils reactive, EOMI, Mucous membr. moist/pink Neck: supple, trachea midline Lungs: Normal Respiratory Effort, Rhonchi Cardiovascular: Regular Rate GI/Abdominal Exam: Normal Bowel Sounds, Soft, Non-Tender, No Organomegaly, No Distention (Male) Exam: Deferred Back Exam: Normal Inspection Extremities: Normal Inspection Skin: warm Neurological: no new focal deficit Psy/Mental Status: alert, normal affect, normal mood - Problem List Review Problem List Initiated/Reviewed/Updated: Yes - My Orders Last 24 Hours: My Active Orders 12/23/16 14:00 Metoclopramide [Reglan] 10 mg IVPUSH Q6H 12/24/16 09:24 Notify Provider Consults [RC] ASDIRECTED Consult to Physician [CONS] Routine 12/24/16 12:56 Magnesium Sulfate/Water [Magnesium Sulfate 2 GM in Water 50 ML] 2 gm Premix Bag 1 bag IV ONETIME 12/25/16 05:00 CRP [C-REACTIVE PROTEIN] [CHEM] Routine DIGOXIN [CHEM] Routine - Plan Plan:: Assessment/Plan: Acute: Bilateral Pyelonephritis - Risk factors: BPH and Urinary Retention - He used to self-cath in September, was stopped at the end of October this year - He follows Dr. 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
--- NOTE | 2016-12-24 13:08 | PCM.PN ---
- General Info Date of Service: 12/23/16 Functional Status: Reports: Pain Controlled, Ambulating, Urinating - Review of Systems General: Reports: No Symptoms HEENT: Reports: No Symptoms Pulmonary: Reports: No Symptoms Cardiovascular: Reports: No Symptoms Gastrointestinal: Reports: No Symptoms Genitourinary: Reports: No Symptoms Musculoskeletal: Reports: No Symptoms Skin: Reports: No Symptoms Neurological: Reports: No Symptoms Psychiatric: Reports: No Symptoms - Patient Data Vitals - most recent: Last Vital Signs Temp 35.9 C 12/24/16 09:35 Pulse 58 L 12/24/16 09:35 Resp 14 12/24/16 09:35 BP 136/72 12/24/16 09:35 Pulse Ox 97 12/24/16 09:35 Weight - most recent: 86.137 kg I&O - last 24 hours: Intake & Output 12/23/16 12/24/16 12/24/16 22:59 06:59 14:59 Intake Total 1900 900 Output Total 2150 1550 Balance -250 -650 Lab Results last 24 hrs: Laboratory Results - last 24 hr 12/23/16 12/23/16 12/24/16 Range/Units 17:04 20:52 05:45 WBC 5.97 (4.23-9.07) K/mm3 RBC 3.46 L (4.63-6.08) M/mm3 Hgb 9.6 L (13.7-17.5) gm/L Hct 29.8 L (40.1-51.0) % MCV 86.1 (79.0-92.2) fl MCH 27.7 (25.7-32.2) pg MCHC 32.2 (32.2-35.5) g/dl RDW Std Deviation 50.3 H (35.1-43.9) fL Plt Count 318 (163-337) K/mm3 MPV 9.4 (9.4-12.3) fl Neut % (Auto) 81.5 H (34.0-67.9) % Lymph % (Auto) 8.0 L (21.8-53.1) % [place] % (Auto) 9.2 (5.3-12.2) % Eos % (Auto) 1.0 (0.8-7.0) Baso % (Auto) 0.0 L (0.1-1.2) % Neut # (Auto) 4.86 (1.78-5.38) K/mm3 Lymph # (Auto) 0.48 L (1.32-3.57) K/mm3 [place] # (Auto) 0.55 (0.30-0.82) K/mm3 Eos # (Auto) 0.06 (0.04-0.54) K/mm3 Baso # (Auto) 0.00 L (0.01-0.08) K/mm3 Manual Slide Review Abnormal smear Sodium (136-145) mEq/L Potassium (3.5-5.1) mEq/L Chloride (98-107) mEq/L Carbon Dioxide (21-32) mEq/L Anion Gap (5-15) BUN (7-18) mg/dL Creatinine (0.7-1.3) mg/dL Est Cr Clr Drug Dosing mL/min Estimated GFR (MDRD) (>60) mL/min BUN/Creatinine Ratio (14-18) Glucose (80-115) mg/dL POC Glucose 108 143 H (80-115) mg/dL Calcium (8.5-10.1) mg/dL Magnesium (1.8-2.4) mg/dl 12/24/16 12/24/16 12/24/16 Range/Units 05:45 06:29 10:58 WBC (4.23-9.07) K/mm3 RBC (4.63-6.08) M/mm3 Hgb (13.7-17.5) gm/L Hct (40.1-51.0) % MCV (79.0-92.2) fl MCH (25.7-32.2) pg MCHC (32.2-35.5) g/dl RDW Std Deviation (35.1-43.9) fL Plt Count (163-337) K/mm3 MPV (9.4-12.3) fl Neut % (Auto) (34.0-67.9) % Lymph % (Auto) (21.8-53.1) % [place] % (Auto) (5.3-12.2) % Eos % (Auto) (0.8-7.0) Baso % (Auto) (0.1-1.2) % Neut # (Auto) (1.78-5.38) K/mm3 Lymph # (Auto) (1.32-3.57) K/mm3 [place] # (Auto) (0.30-0.82) K/mm3 Eos # (Auto) (0.04-0.54) K/mm3 Baso # (Auto) (0.01-0.08) K/mm3 Manual Slide Review Sodium 140 (136-145) mEq/L Potassium 3.4 L (3.5-5.1) mEq/L Chloride 105 (98-107) mEq/L Carbon Dioxide 25 (21-32) mEq/L Anion Gap 13.4 (5-15) BUN 8 (7-18) mg/dL Creatinine 1.2 (0.7-1.3) mg/dL Est Cr Clr Drug Dosing 62.19 mL/min Estimated GFR (MDRD) > 60 (>60) mL/min BUN/Creatinine Ratio 6.7 L (14-18) Glucose 123 H (80-115) mg/dL POC Glucose 121 H 126 H (80-115) mg/dL Calcium 8.4 L (8.5-10.1) mg/dL Magnesium 1.8 (1.8-2.4) mg/dl Buck Results last 24 hrs: Microbiology 12/21/16 18:00 Aerobic Blood Culture - Final Blood - Venous - Lab Draw Escherichia Coli Anaerobic Blood Culture - Final Escherichia Coli 12/21/16 17:50 Aerobic Blood Culture - Final Blood - Venous Escherichia Coli Anaerobic Blood Culture - Final Escherichia Coli Med Orders - Current: Current Medications Acetaminophen (Tylenol) 650 mg PO Q4H PRN PRN Reason: Pain (Mild 1-3)/fever Last Admin: 12/21/16 18:36 Dose: 650 mg Hydrocodone Bitart/Acetaminophen ([place] 325-5 Mg) 1 tab PO Q4H PRN PRN Reason: Pain (moderate 4-6) Last Admin: 12/22/16 21:34 Dose: 1 tab Albuterol/Ipratropium (Duoneb 3.0-0.5 Mg/3 Ml) 3 ml NEB Q4H PRN PRN Reason: Shortness Of Breath/wheezing Allopurinol (Zyloprim) 100 mg PO DAILY [facility] Last Admin: 12/24/16 08:54 Dose: 100 mg Apixaban (Eliquis) 5 mg PO BID [facility] Last Admin: 12/24/16 08:55 Dose: 5 mg Bisacodyl (Dulcolax) 5 mg PO DAILY PRN PRN Reason: Constipation Cholecalciferol (Vitamin D3) 2,000 units PO DAILY [facility] Last Admin: 12/24/16 08:53 Dose: 2,000 units Cyanocobalamin (Vitamin B12) 1,000 mcg PO DAILY [facility] Last Admin: 12/24/16 08:53 Dose: 1,000 mcg Dextrose/Water (Dextrose 50% In Water) 50 ml IVPUSH ASDIRECTED PRN PRN Reason: Hypoglycemia Digoxin (Lanoxin) 125 mcg PO DAILY@1200 [facility] Last Admin: 12/24/16 11:02 Dose: 125 mcg Diltiazem HCl (Dilacor Xr) 240 mg PO DAILY@1600 [facility] Last Admin: 12/23/16 15:32 Dose: 240 mg Docusate Sodium (Colace) 100 mg PO BID PRN PRN Reason: Constipation Finasteride (Proscar) 5 mg PO BEDTIME [facility] Last Admin: 12/23/16 21:01 Dose: 5 mg Hydralazine HCl (Apresoline) 20 mg IVPUSH Q4H PRN PRN Reason: Hypertension Hydromorphone HCl (Dilaudid) 0.25 mg IVPUSH Q2H PRN PRN Reason: Pain (severe 7-10) Ceftriaxone Sodium 2 gm/ (Sodium Chloride) 100 mls @ 200 mls/hr IV Q24H [facility] Last Admin: 12/24/16 09:18 Dose: 200 mls/hr Magnesium Sulfate 2 gm/ Premix 50 mls @ 25 mls/hr IV ONETIME ONE Stop: 12/24/16 14:55 Insulin Aspart (Novolog) 0 unit SUBCUT QIDACANDBED [facility] PRN Reason: Protocol Last Admin: 12/24/16 11:01 Dose: Not Given Lorazepam (Ativan) 1 mg IV Q6H PRN PRN Reason: Anxiety Losartan Potassium (Cozaar) 25 mg PO DAILY [facility] Last Admin: 12/24/16 08:53 Dose: 25 mg Metoclopramide HCl (Reglan) 10 mg IVPUSH Q6H [facility] Last Admin: 12/24/16 08:53 Dose: 10 mg Metoprolol Tartrate (Lopressor) 5 mg IVPUSH Q4H PRN PRN Reason: Tachycardia Metoprolol Tartrate (Lopressor) 25 mg PO QAM [facility] Last Admin: 12/24/16 08:54 Dose: 25 mg Metoprolol Tartrate (Lopressor) 50 mg PO BEDTIME [facility] Last Admin: 12/23/16 21:00 Dose: 50 mg Ondansetron HCl (Zofran) 4 mg IV Q6H PRN PRN Reason: Nausea/Vomiting Last Admin: 12/22/16 16:53 Dose: 4 mg Pantoprazole Sodium (Protonix) 40 mg PO DAILY@0700 [facility] Last Admin: 12/24/16 06:29 Dose: 40 mg Polyethylene Glycol (Miralax) 17 gm PO DAILY PRN PRN Reason: Constipation Ropinirole HCl (Requip) 0.5 mg PO BEDTIME [facility] Last Admin: 12/23/16 21:01 Dose: 0.5 mg Ropinirole HCl (Requip) 0.5 mg PO BEDTIME PRN PRN Reason: Other Rosuvastatin Calcium (Crestor) 40 mg PO BEDTIME [facility] Last Admin: 12/23/16 21:00 Dose: 40 mg Saccharomyces Boulardii (Florastor) 500 mg PO DAILY [facility] Last Admin: 12/24/16 08:55 Dose: 500 mg Senna/Docusate Sodium (Senna Plus) 1 tab PO BID PRN PRN Reason: Constipation Simethicone (Simethicone) 80 mg PO QIDACANDBED [facility] Last Admin: 12/24/16 11:02 Dose: 80 mg Simvastatin (Zocor) 10 mg PO BEDTIME [facility] Last Admin: 12/23/16 21:01 Dose: 10 mg Tamsulosin HCl (Flomax) 0.4 mg PO BEDTIME [facility] Last Admin: 12/23/16 21:01 Dose: 0.4 mg Temazepam (Restoril) 15 mg PO BEDTIME PRN PRN Reason: Sleep Last Admin: 12/23/16 21:01 Dose: 15 mg Discontinued Medications Digoxin (Lanoxin) 125 mcg PO DAILY [facility] Diltiazem HCl (Dilacor Xr) 240 mg PO DAILY [facility] Last Admin: 12/22/16 09:31 Dose: Not Given Hydromorphone HCl (Dilaudid) 0.25 mg IVPUSH Q2H PRN PRN Reason: Pain (severe 7-10) Last Admin: 12/21/16 20:10 Dose: 0.25 mg Levofloxacin/Dextrose 750 mg/ (Premix) 150 mls @ 100 mls/hr IV Q24H [facility] Last Admin: 12/22/16 11:44 Dose: 100 mls/hr Levofloxacin/Dextrose 750 mg/ (Premix) 150 mls @ 100 mls/hr IV ONETIME ONE Stop: 12/21/16 18:30 Last Admin: 12/21/16 18:15 Dose: 100 mls/hr Promethazine HCl 12.5 mg/ (Sodium Chloride) 50.5 mls @ 100 mls/hr IV Q6H PRN PRN Reason: Nausea/Vomiting Sodium Chloride (Normal Saline) 1,000 mls @ 125 mls/hr IV ASDIRECTED [facility] Last Admin: 12/23/16 04:20 Dose: 125 mls/hr Magnesium Sulfate 2 gm/ Premix 50 mls @ 25 mls/hr IV ONETIME ONE Stop: 12/22/16 09:59 Last Admin: 12/22/16 09:46 Dose: 25 mls/hr Losartan Potassium (Cozaar) 25 mg PO DAILY [facility] Magnesium Sulfate (Pharmacy To Dose - Magnesium Replacement) 1 dose .XX ASDIRECTED [facility] Metoprolol Tartrate (Lopressor) 12.5 mg PO BID [facility] Last Admin: 12/21/16 20:22 Dose: 12.5 mg NonformTrulicity (1.5 Mg) 1.5 mg SQ TH [facility] Last Admin: 12/21/16 22:20 Dose: Not Given Oral Electrolytes (Thermotabs) 1 each PO TID PRN PRN Reason: Other Phenazopyridine HCl (Urinary Pain Relief) 95 mg PO TIDPC [facility] Last Admin: 12/23/16 13:19 Dose: Not Given Potassium Chloride (Pharmacy To Dose - Potassium Replacement) 1 dose .XX ASDIRECTED [facility] Ropinirole HCl (Requip) 0.5 mg PO BEDTIME PRN PRN Reason: Other Rosuvastatin Calcium (Crestor) 40 mg PO DAILY [facility] Saccharomyces Boulardii (Florastor) 500 mg PO ONETIME ONE Stop: 12/21/16 17:06 Last Admin: 12/21/16 18:55 Dose: 250 mg Saccharomyces Boulardii (Florastor) 250 mg PO ONETIME ONE Stop: 12/21/16 19:01 Last Admin: 12/21/16 19:27 Dose: 250 mg Simethicone (Simethicone) 80 mg PO Q6H PRN PRN Reason: Gas - Exam Quality Assessment: DVT prophylaxis General: alert, oriented, cooperative, no acute distress HEENT: Pupils equal, Pupils reactive, EOMI, Mucous membr. moist/pink Neck: supple, trachea midline Lungs: Normal Respiratory Effort Cardiovascular: Regular Rate GI/Abdominal Exam: Normal Bowel Sounds, Soft, Non-Tender, No Organomegaly, Distended (Male) Exam: Deferred Back Exam: Normal Inspection Extremities: Normal Inspection, No Pedal Edema Skin: warm Neurological: no new focal deficit Psy/Mental Status: alert, normal affect, normal mood - Problem List Review Problem List Initiated/Reviewed/Updated: Yes - My Orders Last 24 Hours: My Active Orders 12/23/16 14:00 Metoclopramide [Reglan] 10 mg IVPUSH Q6H 12/24/16 09:24 Notify Provider Consults [RC] ASDIRECTED Consult to Physician [CONS] Routine 12/24/16 12:56 Magnesium Sulfate/Water [Magnesium Sulfate 2 GM in Water 50 ML] 2 gm Premix Bag 1 bag IV ONETIME 12/25/16 05:00 CRP [C-REACTIVE PROTEIN] [CHEM] Routine DIGOXIN [CHEM] Routine - Plan Plan:: Assessment/Plan: Acute: Bilateral Pyelonephritis - Risk factors: BPH and Urinary Retention - He used to self-cath in September, was stopped at the end of October this year - He follows Dr. Lopez for his urologic issues - UA pos for UTI from the clinic - Start IV Levaquin-->stopped organism is resistant; started Rocephin - UA Cx/Sx-->G neg rods BPH with Urinary Retention - Continue flomax and proscar Hyperglycemia with DM2 - BS 139 - On insulin regimen - A1C in AM - ISS and Accu-check Hyponatremia - Na 129 - He is on HCTZ, no SSRI - IV fluid hydration - Salt tablet 1 tab po x 3 doses only Gas/Bloating - Simethicone Q6 PRN - Dietary consult for less gas diet Chronic: PAF on eliquis, HR controlled HTN CAD HLD BPH DM2 Hx/o S3 S/p [employer] RLS Vit D and B12 Deficiency Plan: Gen surg for blaoting, will see Dr Taylor as an outpatient Med-Surg w/ Tele IV ATBs Routine AM Labs Resume Home Meds SW/CM for d/c planning Code status: 1 LOS.96 hours for treatment, return to work likely
[2016-12-24] MEDS: Diltiazem 240 MG Cap.ER PO SCH (16:12)
[2016-12-24] MEDS ORDERED: Potassium Chloride 20 MEQ Tab.ER PO ONE (17:06)
[2016-12-24] MEDS: Simvastatin 10 MG Tab PO SCH (20:38)
[2016-12-24] MEDS: Metoprolol Tartrate 50 MG Tab PO SCH (20:39)
[2016-12-24] MEDS: Finasteride 5 MG Tab PO SCH (20:39)
[2016-12-24] MEDS: Rosuvastatin 10 MG Tab PO SCH (20:40)
[2016-12-24] MEDS: rOPINIRole 0.25 MG Tab PO SCH (20:40)
[2016-12-24] MEDS: Tamsulosin 0.4 MG Cap.ER PO SCH (20:40)
[2016-12-24] MEDS: Temazepam 15 MG Cap PO PRN (21:03)
[2016-12-25] MEDS: Metoclopramide 10 MG/2 ML SDV IVPUSH SCH ×2 (02:10→08:15)
[2016-12-25] MEDS: Simethicone 80 MG Tab.Chew PO SCH ×4 (06:09→21:01)
[2016-12-25] MEDS: Pantoprazole 40 MG Tab.CR PO SCH (06:09)
[2016-12-25] MEDS: Insulin Aspart 100 Units/ML 3 ML Pen SUBCUT SCH ×4 (06:10→21:15)
[2016-12-25] MEDS: Cholecalciferol (Vitamin D3) 1,000 Unit Tab PO SCH (08:11)
[2016-12-25] MEDS: Losartan 25 MG Tab PO SCH (08:11)
[2016-12-25] MEDS: Allopurinol 100 MG Tab PO SCH (08:11)
[2016-12-25] MEDS: Metoprolol Tartrate 25 MG Tab PO SCH (08:14)
[2016-12-25] MEDS: Cyanocobalamin (Vitamin B12) 1,000 MCG Tab PO SCH (08:14)
[2016-12-25] MEDS: Apixaban 5 MG Tab PO SCH ×2 (08:15→21:00)
[2016-12-25] MEDS: cefTRIAXone 2 GM in Sodium Chloride 0.9% 100 ML IV SCH (08:15)
[2016-12-25] MEDS: Saccharomyces Boulardii (Probiotic) 250 MG Cap PO SCH (08:20)
[2016-12-25] MEDS ORDERED: Metoclopramide 10 MG/2 ML SDV IVPUSH PRN (11:48)
[2016-12-25] MEDS: Digoxin 125 MCG Tab PO SCH (11:49)
--- NOTE | 2016-12-25 14:40 | PCM.PN ---
- General Info Date of Service: 12/25/16 Functional Status: Reports: Pain Controlled, Tolerating Diet, Ambulating, Urinating - Review of Systems General: Reports: No Symptoms HEENT: Reports: No Symptoms Pulmonary: Reports: No Symptoms Cardiovascular: Reports: No Symptoms Gastrointestinal: Reports: No Symptoms Genitourinary: Reports: No Symptoms Musculoskeletal: Reports: No Symptoms Skin: Reports: No Symptoms Neurological: Reports: No Symptoms Psychiatric: Reports: No Symptoms - Patient Data Vitals - most recent: Last Vital Signs Temp 35.9 C 12/25/16 12:19 Pulse 59 L 12/25/16 12:20 Resp 12 12/25/16 12:19 BP 134/88 12/25/16 12:20 Pulse Ox 99 12/25/16 12:20 Weight - most recent: 87.18 kg I&O - last 24 hours: Intake & Output 12/24/16 12/25/16 12/25/16 22:59 06:59 14:59 Intake Total 1320 1000 300 Output Total 1600 3425 Balance -280 -2425 300 Lab Results last 24 hrs: Laboratory Results - last 24 hr 12/24/16 12/24/16 12/25/16 Range/Units 17:23 20:56 05:43 WBC 6.34 (4.23-9.07) K/mm3 RBC 3.64 L (4.63-6.08) M/mm3 Hgb 10.3 L (13.7-17.5) gm/L Hct 31.5 L (40.1-51.0) % MCV 86.5 (79.0-92.2) fl MCH 28.3 (25.7-32.2) pg MCHC 32.7 (32.2-35.5) g/dl RDW Std Deviation 50.9 H (35.1-43.9) fL Plt Count 406 H (163-337) K/mm3 MPV 9.4 (9.4-12.3) fl Neut % (Auto) 80.3 H (34.0-67.9) % Lymph % (Auto) 8.7 L (21.8-53.1) % [place] % (Auto) 9.3 (5.3-12.2) % Eos % (Auto) 0.9 (0.8-7.0) Baso % (Auto) 0.2 (0.1-1.2) % Neut # (Auto) 5.09 (1.78-5.38) K/mm3 Lymph # (Auto) 0.55 L (1.32-3.57) K/mm3 [place] # (Auto) 0.59 (0.30-0.82) K/mm3 Eos # (Auto) 0.06 (0.04-0.54) K/mm3 Baso # (Auto) 0.01 (0.01-0.08) K/mm3 Manual Slide Review Abnormal smear Sodium (136-145) mEq/L Potassium (3.5-5.1) mEq/L Chloride (98-107) mEq/L Carbon Dioxide (21-32) mEq/L Anion Gap (5-15) BUN (7-18) mg/dL Creatinine (0.7-1.3) mg/dL Est Cr Clr Drug Dosing mL/min Estimated GFR (MDRD) (>60) mL/min BUN/Creatinine Ratio (14-18) Glucose (80-115) mg/dL POC Glucose 96 191 H (80-115) mg/dL Calcium (8.5-10.1) mg/dL Magnesium (1.8-2.4) mg/dl AST (15-37) U/L ALT (16-63) U/L C-Reactive Protein (<1.0) mg/dL Digoxin (0.9-2.0) ng/mL 12/25/16 12/25/16 12/25/16 Range/Units 05:43 05:43 06:08 WBC (4.23-9.07) K/mm3 RBC (4.63-6.08) M/mm3 Hgb (13.7-17.5) gm/L Hct (40.1-51.0) % MCV (79.0-92.2) fl MCH (25.7-32.2) pg MCHC (32.2-35.5) g/dl RDW Std Deviation (35.1-43.9) fL Plt Count (163-337) K/mm3 MPV (9.4-12.3) fl Neut % (Auto) (34.0-67.9) % Lymph % (Auto) (21.8-53.1) % [place] % (Auto) (5.3-12.2) % Eos % (Auto) (0.8-7.0) Baso % (Auto) (0.1-1.2) % Neut # (Auto) (1.78-5.38) K/mm3 Lymph # (Auto) (1.32-3.57) K/mm3 [place] # (Auto) (0.30-0.82) K/mm3 Eos # (Auto) (0.04-0.54) K/mm3 Baso # (Auto) (0.01-0.08) K/mm3 Manual Slide Review Sodium 142 (136-145) mEq/L Potassium 4.1 (3.5-5.1) mEq/L Chloride 105 (98-107) mEq/L Carbon Dioxide 27 (21-32) mEq/L Anion Gap 14.1 (5-15) BUN 7 (7-18) mg/dL Creatinine 1.1 (0.7-1.3) mg/dL Est Cr Clr Drug Dosing 67.84 mL/min Estimated GFR (MDRD) > 60 (>60) mL/min BUN/Creatinine Ratio 6.4 L (14-18) Glucose 109 (80-115) mg/dL POC Glucose 120 H (80-115) mg/dL Calcium 9.0 (8.5-10.1) mg/dL Magnesium 2.2 (1.8-2.4) mg/dl AST 45 H (15-37) U/L ALT 76 H (16-63) U/L C-Reactive Protein 15.4 H* (<1.0) mg/dL Digoxin 0.4 L (0.9-2.0) ng/mL 12/25/16 Range/Units 11:49 WBC (4.23-9.07) K/mm3 RBC (4.63-6.08) M/mm3 Hgb (13.7-17.5) gm/L Hct (40.1-51.0) % MCV (79.0-92.2) fl MCH (25.7-32.2) pg MCHC (32.2-35.5) g/dl RDW Std Deviation (35.1-43.9) fL Plt Count (163-337) K/mm3 MPV (9.4-12.3) fl Neut % (Auto) (34.0-67.9) % Lymph % (Auto) (21.8-53.1) % [place] % (Auto) (5.3-12.2) % Eos % (Auto) (0.8-7.0) Baso % (Auto) (0.1-1.2) % Neut # (Auto) (1.78-5.38) K/mm3 Lymph # (Auto) (1.32-3.57) K/mm3 [place] # (Auto) (0.30-0.82) K/mm3 Eos # (Auto) (0.04-0.54) K/mm3 Baso # (Auto) (0.01-0.08) K/mm3 Manual Slide Review Sodium (136-145) mEq/L Potassium (3.5-5.1) mEq/L Chloride (98-107) mEq/L Carbon Dioxide (21-32) mEq/L Anion Gap (5-15) BUN (7-18) mg/dL Creatinine (0.7-1.3) mg/dL Est Cr Clr Drug Dosing mL/min Estimated GFR (MDRD) (>60) mL/min BUN/Creatinine Ratio (14-18) Glucose (80-115) mg/dL POC Glucose 109 (80-115) mg/dL Calcium (8.5-10.1) mg/dL Magnesium (1.8-2.4) mg/dl AST (15-37) U/L ALT (16-63) U/L C-Reactive Protein (<1.0) mg/dL Digoxin (0.9-2.0) ng/mL Buck Results last 24 hrs: Microbiology 12/21/16 18:00 Aerobic Blood Culture - Final Blood - Venous - Lab Draw Escherichia Coli Anaerobic Blood Culture - Final Escherichia Coli 12/21/16 17:50 Aerobic Blood Culture - Final Blood - Venous Escherichia Coli Anaerobic Blood Culture - Final Escherichia Coli Med Orders - Current: Current Medications Acetaminophen (Tylenol) 650 mg PO Q4H PRN PRN Reason: Pain (Mild 1-3)/fever Last Admin: 12/21/16 18:36 Dose: 650 mg Hydrocodone Bitart/Acetaminophen ([place] 325-5 Mg) 1 tab PO Q4H PRN PRN Reason: Pain (moderate 4-6) Last Admin: 12/22/16 21:34 Dose: 1 tab Albuterol/Ipratropium (Duoneb 3.0-0.5 Mg/3 Ml) 3 ml NEB Q4H PRN PRN Reason: Shortness Of Breath/wheezing Allopurinol (Zyloprim) 100 mg PO DAILY [facility] Last Admin: 12/25/16 08:11 Dose: 100 mg Apixaban (Eliquis) 5 mg PO BID [facility] Last Admin: 12/25/16 08:15 Dose: 5 mg Bisacodyl (Dulcolax) 5 mg PO DAILY PRN PRN Reason: Constipation Cholecalciferol (Vitamin D3) 2,000 units PO DAILY [facility] Last Admin: 12/25/16 08:11 Dose: 2,000 units Cyanocobalamin (Vitamin B12) 1,000 mcg PO DAILY [facility] Last Admin: 12/25/16 08:14 Dose: 1,000 mcg Dextrose/Water (Dextrose 50% In Water) 50 ml IVPUSH ASDIRECTED PRN PRN Reason: Hypoglycemia Digoxin (Lanoxin) 125 mcg PO DAILY@1200 [facility] Last Admin: 12/25/16 11:49 Dose: 125 mcg Diltiazem HCl (Dilacor Xr) 240 mg PO DAILY@1600 [facility] Last Admin: 12/24/16 16:12 Dose: 240 mg Docusate Sodium (Colace) 100 mg PO BID PRN PRN Reason: Constipation Finasteride (Proscar) 5 mg PO BEDTIME [facility] Last Admin: 12/24/16 20:39 Dose: 5 mg Hydralazine HCl (Apresoline) 20 mg IVPUSH Q4H PRN PRN Reason: Hypertension Hydromorphone HCl (Dilaudid) 0.25 mg IVPUSH Q2H PRN PRN Reason: Pain (severe 7-10) Ceftriaxone Sodium 2 gm/ (Sodium Chloride) 100 mls @ 200 mls/hr IV Q24H [facility] Last Admin: 12/25/16 08:15 Dose: 200 mls/hr Insulin Aspart (Novolog) 0 unit SUBCUT QIDACANDBED [facility] PRN Reason: Protocol Last Admin: 12/25/16 11:50 Dose: Not Given Lorazepam (Ativan) 1 mg IV Q6H PRN PRN Reason: Anxiety Losartan Potassium (Cozaar) 25 mg PO DAILY [facility] Last Admin: 12/25/16 08:11 Dose: 25 mg Metoclopramide HCl (Reglan) 10 mg IVPUSH Q6H PRN PRN Reason: GASTROPARESIS Metoprolol Tartrate (Lopressor) 5 mg IVPUSH Q4H PRN PRN Reason: Tachycardia Metoprolol Tartrate (Lopressor) 25 mg PO QAM [facility] Last Admin: 12/25/16 08:14 Dose: 25 mg Metoprolol Tartrate (Lopressor) 50 mg PO BEDTIME [facility] Last Admin: 12/24/16 20:39 Dose: 50 mg Ondansetron HCl (Zofran) 4 mg IV Q6H PRN PRN Reason: Nausea/Vomiting Last Admin: 12/22/16 16:53 Dose: 4 mg Pantoprazole Sodium (Protonix) 40 mg PO DAILY@0700 [facility] Last Admin: 12/25/16 06:09 Dose: 40 mg Polyethylene Glycol (Miralax) 17 gm PO DAILY PRN PRN Reason: Constipation Last Admin: 12/24/16 17:24 Dose: 17 gm Ropinirole HCl (Requip) 0.5 mg PO BEDTIME [facility] Last Admin: 12/24/16 20:40 Dose: 0.5 mg Ropinirole HCl (Requip) 0.5 mg PO BEDTIME PRN PRN Reason: Other Rosuvastatin Calcium (Crestor) 40 mg PO BEDTIME [facility] Last Admin: 12/24/16 20:40 Dose: 40 mg Saccharomyces Boulardii (Florastor) 500 mg PO DAILY [facility] Last Admin: 12/25/16 08:20 Dose: 500 mg Senna/Docusate Sodium (Senna Plus) 1 tab PO BID PRN PRN Reason: Constipation Simethicone (Simethicone) 80 mg PO QIDACANDBED [facility] Last Admin: 12/25/16 11:53 Dose: 80 mg Tamsulosin HCl (Flomax) 0.4 mg PO BEDTIME [facility] Last Admin: 12/24/16 20:40 Dose: 0.4 mg Temazepam (Restoril) 15 mg PO BEDTIME PRN PRN Reason: Sleep Last Admin: 12/24/16 21:03 Dose: 15 mg Discontinued Medications Digoxin (Lanoxin) 125 mcg PO DAILY [facility] Diltiazem HCl (Dilacor Xr) 240 mg PO DAILY [facility] Last Admin: 12/22/16 09:31 Dose: Not Given Hydromorphone HCl (Dilaudid) 0.25 mg IVPUSH Q2H PRN PRN Reason: Pain (severe 7-10) Last Admin: 12/21/16 20:10 Dose: 0.25 mg Levofloxacin/Dextrose 750 mg/ (Premix) 150 mls @ 100 mls/hr IV Q24H [facility] Last Admin: 12/22/16 11:44 Dose: 100 mls/hr Levofloxacin/Dextrose 750 mg/ (Premix) 150 mls @ 100 mls/hr IV ONETIME ONE Stop: 12/21/16 18:30 Last Admin: 12/21/16 18:15 Dose: 100 mls/hr Promethazine HCl 12.5 mg/ (Sodium Chloride) 50.5 mls @ 100 mls/hr IV Q6H PRN PRN Reason: Nausea/Vomiting Sodium Chloride (Normal Saline) 1,000 mls @ 125 mls/hr IV ASDIRECTED [facility] Last Admin: 12/23/16 04:20 Dose: 125 mls/hr Magnesium Sulfate 2 gm/ Premix 50 mls @ 25 mls/hr IV ONETIME ONE Stop: 12/22/16 09:59 Last Admin: 12/22/16 09:46 Dose: 25 mls/hr Magnesium Sulfate 2 gm/ Premix 50 mls @ 25 mls/hr IV ONETIME ONE Stop: 12/24/16 14:55 Last Admin: 12/24/16 13:14 Dose: 25 mls/hr Losartan Potassium (Cozaar) 25 mg PO DAILY [facility] Magnesium Sulfate (Pharmacy To Dose - Magnesium Replacement) 1 dose .XX ASDIRECTED [facility] Metoclopramide HCl (Reglan) 10 mg IVPUSH Q6H [facility] Last Admin: 12/25/16 08:15 Dose: 10 mg Metoprolol Tartrate (Lopressor) 12.5 mg PO BID [facility] Last Admin: 12/21/16 20:22 Dose: 12.5 mg NonformTrulicity (1.5 Mg) 1.5 mg SQ TH [facility] Last Admin: 12/21/16 22:20 Dose: Not Given Oral Electrolytes (Thermotabs) 1 each PO TID PRN PRN Reason: Other Phenazopyridine HCl (Urinary Pain Relief) 95 mg PO TIDPC [facility] Last Admin: 12/23/16 13:19 Dose: Not Given Potassium Chloride (Pharmacy To Dose - Potassium Replacement) 1 dose .XX ASDIRECTED [facility] Potassium Chloride (Klor-Con M20) 40 meq PO ONETIME ONE Stop: 12/24/16 17:07 Last Admin: 12/24/16 17:34 Dose: 40 meq Ropinirole HCl (Requip) 0.5 mg PO BEDTIME PRN PRN Reason: Other Rosuvastatin Calcium (Crestor) 40 mg PO DAILY [facility] Saccharomyces Boulardii (Florastor) 500 mg PO ONETIME ONE Stop: 12/21/16 17:06 Last Admin: 12/21/16 18:55 Dose: 250 mg Saccharomyces Boulardii (Florastor) 250 mg PO ONETIME ONE Stop: 12/21/16 19:01 Last Admin: 12/21/16 19:27 Dose: 250 mg Simethicone (Simethicone) 80 mg PO Q6H PRN PRN Reason: Gas Simvastatin (Zocor) 10 mg PO BEDTIME [facility] Last Admin: 12/24/16 20:38 Dose: Not Given - Exam Quality Assessment: Supplemental Oxygen, DVT Prophylaxis General: alert, oriented, cooperative, no acute distress HEENT: Pupils Equal, Pupils Reactive, EOMI, Mucous Membr. Moist/[place] Neck: supple, trachea midline, no JVD Lungs: Normal Respiratory Effort Cardiovascular: Regular Rate GI/Abdominal Exam: Normal Bowel Sounds, Soft, Non-Tender, No Organomegaly, Distended (Male) Exam: Deferred Back Exam: Normal Inspection Extremities: Normal Inspection Skin: warm Neurological: no new focal deficit, normal gait, normal speech Psy/Mental Status: alert, normal affect, normal mood - Problem List Review Problem List Initiated/Reviewed/Updated: Yes - My Orders Last 24 Hours: My Active Orders 12/25/16 11:48 Metoclopramide [Reglan] 10 mg IVPUSH Q6H PRN - Plan Plan:: Assessment/Plan: Acute: Bilateral Pyelonephritis - Risk factors: BPH and Urinary Retention - He used to self-cath in September, was stopped at the end of October this year - He follows Dr. 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
[2016-12-25] MEDS: Diltiazem 240 MG Cap.ER PO SCH (16:20)
[2016-12-25] MEDS: rOPINIRole 0.25 MG Tab PO SCH (21:00)
[2016-12-25] MEDS: Finasteride 5 MG Tab PO SCH (21:01)
[2016-12-25] MEDS: Rosuvastatin 10 MG Tab PO SCH (21:01)
[2016-12-25] MEDS: Metoprolol Tartrate 50 MG Tab PO SCH (21:01)
[2016-12-25] MEDS: Tamsulosin 0.4 MG Cap.ER PO SCH (21:01)
[2016-12-25] MEDS: Temazepam 15 MG Cap PO PRN (21:15)
[2016-12-26] MEDS: Cholecalciferol (Vitamin D3) 1,000 Unit Tab PO SCH (08:23)
[2016-12-26] MEDS: Saccharomyces Boulardii (Probiotic) 250 MG Cap PO SCH (08:23)
[2016-12-26] MEDS: Metoprolol Tartrate 25 MG Tab PO SCH (08:24)
[2016-12-26] MEDS: Simethicone 80 MG Tab.Chew PO SCH ×4 (08:24→21:16)
[2016-12-26] MEDS: Apixaban 5 MG Tab PO SCH ×2 (08:25→21:13)
[2016-12-26] MEDS: Cyanocobalamin (Vitamin B12) 1,000 MCG Tab PO SCH (08:25)
[2016-12-26] MEDS: Pantoprazole 40 MG Tab.CR PO SCH (08:25)
[2016-12-26] MEDS: Allopurinol 100 MG Tab PO SCH (08:25)
[2016-12-26] MEDS: Losartan 25 MG Tab PO SCH (08:26)
[2016-12-26] MEDS: cefTRIAXone 2 GM in Sodium Chloride 0.9% 100 ML IV SCH (08:26)
[2016-12-26] MEDS: Insulin Aspart 100 Units/ML 3 ML Pen SUBCUT SCH ×4 (08:27→21:16)
[2016-12-26] MEDS: Digoxin 125 MCG Tab PO SCH (12:07)
--- NOTE | 2016-12-26 14:50 | PCM.PN ---
- General Info Date of Service: 12/26/16 Functional Status: Reports: Pain Controlled, Tolerating Diet, Ambulating - Review of Systems General: Reports: No Symptoms HEENT: Reports: No Symptoms Pulmonary: Reports: No Symptoms Cardiovascular: Reports: No Symptoms Gastrointestinal: Reports: Other (distended) Genitourinary: Reports: No Symptoms Musculoskeletal: Reports: No Symptoms Skin: Reports: No Symptoms Neurological: Reports: No Symptoms Psychiatric: Reports: No Symptoms - Patient Data Vitals - Most Recent: Last Vital Signs Temp 36.2 C 12/26/16 12:26 Pulse 63 12/26/16 12:26 Resp 14 12/26/16 12:26 BP 119/75 12/26/16 12:26 Pulse Ox 98 12/26/16 12:26 Weight - Most Recent: 87.18 kg I&O - Last 24 Hours: Intake & Output 12/25/16 12/26/16 12/26/16 22:59 06:59 14:59 Intake Total 1480 700 300 Output Total 1300 1371 Balance 180 -671 300 Lab Results Last 24 Hours: Laboratory Results - last 24 hr 12/25/16 12/25/16 12/26/16 Range/Units 16:22 21:08 05:50 Sodium 142 (136-145) mEq/L Potassium 3.7 (3.5-5.1) mEq/L Chloride 105 (98-107) mEq/L Carbon Dioxide 27 (21-32) mEq/L Anion Gap 13.7 (5-15) BUN 9 (7-18) mg/dL Creatinine 1.0 (0.7-1.3) mg/dL Est Cr Clr Drug Dosing 74.63 mL/min Estimated GFR (MDRD) > 60 (>60) mL/min BUN/Creatinine Ratio 9.0 L (14-18) Glucose 121 H (80-115) mg/dL POC Glucose 150 H 110 (80-115) mg/dL Calcium 8.7 (8.5-10.1) mg/dL Magnesium 1.9 (1.8-2.4) mg/dl 12/26/16 12/26/16 Range/Units 06:01 10:58 Sodium (136-145) mEq/L Potassium (3.5-5.1) mEq/L Chloride (98-107) mEq/L Carbon Dioxide (21-32) mEq/L Anion Gap (5-15) BUN (7-18) mg/dL Creatinine (0.7-1.3) mg/dL Est Cr Clr Drug Dosing mL/min Estimated GFR (MDRD) (>60) mL/min BUN/Creatinine Ratio (14-18) Glucose (80-115) mg/dL POC Glucose 131 H 126 H (80-115) mg/dL Calcium (8.5-10.1) mg/dL Magnesium (1.8-2.4) mg/dl Buck Results Last 24 Hours: Microbiology 12/25/16 07:15 Aerobic Blood Culture - Preliminary Blood - Venous - Lab Draw NO GROWTH AFTER 1 DAY Anaerobic Blood Culture - Preliminary NO GROWTH AFTER 1 DAY 12/25/16 07:05 Aerobic Blood Culture - Preliminary Blood - Venous NO GROWTH AFTER 1 DAY Anaerobic Blood Culture - Preliminary NO GROWTH AFTER 1 DAY Med Orders - Current: Current Medications Acetaminophen (Tylenol) 650 mg PO Q4H PRN PRN Reason: Pain (Mild 1-3)/fever Last Admin: 12/21/16 18:36 Dose: 650 mg Hydrocodone Bitart/Acetaminophen ([place] 325-5 Mg) 1 tab PO Q4H PRN PRN Reason: Pain (moderate 4-6) Last Admin: 12/22/16 21:34 Dose: 1 tab Albuterol/Ipratropium (Duoneb 3.0-0.5 Mg/3 Ml) 3 ml NEB Q4H PRN PRN Reason: Shortness Of Breath/wheezing Allopurinol (Zyloprim) 100 mg PO DAILY [facility] Last Admin: 12/26/16 08:25 Dose: 100 mg Apixaban (Eliquis) 5 mg PO BID [facility] Last Admin: 12/26/16 08:25 Dose: 5 mg Bisacodyl (Dulcolax) 5 mg PO DAILY PRN PRN Reason: Constipation Cholecalciferol (Vitamin D3) 2,000 units PO DAILY [facility] Last Admin: 12/26/16 08:23 Dose: 2,000 units Cyanocobalamin (Vitamin B12) 1,000 mcg PO DAILY [facility] Last Admin: 12/26/16 08:25 Dose: 1,000 mcg Dextrose/Water (Dextrose 50% In Water) 50 ml IVPUSH ASDIRECTED PRN PRN Reason: Hypoglycemia Digoxin (Lanoxin) 125 mcg PO DAILY@1200 [facility] Last Admin: 12/26/16 12:07 Dose: 125 mcg Diltiazem HCl (Dilacor Xr) 240 mg PO DAILY@1600 [facility] Last Admin: 12/25/16 16:20 Dose: 240 mg Docusate Sodium (Colace) 100 mg PO BID PRN PRN Reason: Constipation Last Admin: 12/25/16 21:24 Dose: 100 mg Finasteride (Proscar) 5 mg PO BEDTIME [facility] Last Admin: 12/25/16 21:01 Dose: 5 mg Hydralazine HCl (Apresoline) 20 mg IVPUSH Q4H PRN PRN Reason: Hypertension Hydromorphone HCl (Dilaudid) 0.25 mg IVPUSH Q2H PRN PRN Reason: Pain (severe 7-10) Ceftriaxone Sodium 2 gm/ (Sodium Chloride) 100 mls @ 200 mls/hr IV Q24H [facility] Last Admin: 12/26/16 08:26 Dose: 200 mls/hr Insulin Aspart (Novolog) 0 unit SUBCUT QIDACANDBED [facility] PRN Reason: Protocol Last Admin: 12/26/16 12:08 Dose: Not Given Lorazepam (Ativan) 1 mg IV Q6H PRN PRN Reason: Anxiety Losartan Potassium (Cozaar) 25 mg PO DAILY [facility] Last Admin: 12/26/16 08:26 Dose: 25 mg Metoclopramide HCl (Reglan) 10 mg IVPUSH Q6H PRN PRN Reason: GASTROPARESIS Metoprolol Tartrate (Lopressor) 5 mg IVPUSH Q4H PRN PRN Reason: Tachycardia Metoprolol Tartrate (Lopressor) 25 mg PO QAM [facility] Last Admin: 12/26/16 08:24 Dose: 25 mg Metoprolol Tartrate (Lopressor) 50 mg PO BEDTIME [facility] Last Admin: 12/25/16 21:01 Dose: 50 mg Ondansetron HCl (Zofran) 4 mg IV Q6H PRN PRN Reason: Nausea/Vomiting Last Admin: 12/22/16 16:53 Dose: 4 mg Pantoprazole Sodium (Protonix) 40 mg PO DAILY@0700 [facility] Last Admin: 12/26/16 08:25 Dose: 40 mg Polyethylene Glycol (Miralax) 17 gm PO DAILY PRN PRN Reason: Constipation Last Admin: 12/24/16 17:24 Dose: 17 gm Ropinirole HCl (Requip) 0.5 mg PO BEDTIME [facility] Last Admin: 12/25/16 21:00 Dose: 0.5 mg Ropinirole HCl (Requip) 0.5 mg PO BEDTIME PRN PRN Reason: Other Rosuvastatin Calcium (Crestor) 40 mg PO BEDTIME [facility] Last Admin: 12/25/16 21:01 Dose: 40 mg Saccharomyces Boulardii (Florastor) 500 mg PO DAILY [facility] Last Admin: 12/26/16 08:23 Dose: 500 mg Senna/Docusate Sodium (Senna Plus) 1 tab PO BID PRN PRN Reason: Constipation Simethicone (Simethicone) 80 mg PO QIDACANDBED [facility] Last Admin: 12/26/16 12:07 Dose: 80 mg Tamsulosin HCl (Flomax) 0.4 mg PO BEDTIME [facility] Last Admin: 12/25/16 21:01 Dose: 0.4 mg Temazepam (Restoril) 15 mg PO BEDTIME PRN PRN Reason: Sleep Last Admin: 12/25/16 21:15 Dose: 15 mg Discontinued Medications Digoxin (Lanoxin) 125 mcg PO DAILY [facility] Diltiazem HCl (Dilacor Xr) 240 mg PO DAILY [facility] Last Admin: 12/22/16 09:31 Dose: Not Given Hydromorphone HCl (Dilaudid) 0.25 mg IVPUSH Q2H PRN PRN Reason: Pain (severe 7-10) Last Admin: 12/21/16 20:10 Dose: 0.25 mg Levofloxacin/Dextrose 750 mg/ (Premix) 150 mls @ 100 mls/hr IV Q24H [facility] Last Admin: 12/22/16 11:44 Dose: 100 mls/hr Levofloxacin/Dextrose 750 mg/ (Premix) 150 mls @ 100 mls/hr IV ONETIME ONE Stop: 12/21/16 18:30 Last Admin: 12/21/16 18:15 Dose: 100 mls/hr Promethazine HCl 12.5 mg/ (Sodium Chloride) 50.5 mls @ 100 mls/hr IV Q6H PRN PRN Reason: Nausea/Vomiting Sodium Chloride (Normal Saline) 1,000 mls @ 125 mls/hr IV ASDIRECTED [facility] Last Admin: 12/23/16 04:20 Dose: 125 mls/hr Magnesium Sulfate 2 gm/ Premix 50 mls @ 25 mls/hr IV ONETIME ONE Stop: 12/22/16 09:59 Last Admin: 12/22/16 09:46 Dose: 25 mls/hr Magnesium Sulfate 2 gm/ Premix 50 mls @ 25 mls/hr IV ONETIME ONE Stop: 12/24/16 14:55 Last Admin: 12/24/16 13:14 Dose: 25 mls/hr Losartan Potassium (Cozaar) 25 mg PO DAILY [facility] Magnesium Sulfate (Pharmacy To Dose - Magnesium Replacement) 1 dose .XX ASDIRECTED [facility] Metoclopramide HCl (Reglan) 10 mg IVPUSH Q6H [facility] Last Admin: 12/25/16 08:15 Dose: 10 mg Metoprolol Tartrate (Lopressor) 12.5 mg PO BID [facility] Last Admin: 12/21/16 20:22 Dose: 12.5 mg NonformTrulicity (1.5 Mg) 1.5 mg SQ TH [facility] Last Admin: 12/21/16 22:20 Dose: Not Given Oral Electrolytes (Thermotabs) 1 each PO TID PRN PRN Reason: Other Phenazopyridine HCl (Urinary Pain Relief) 95 mg PO TIDPC [facility] Last Admin: 12/23/16 13:19 Dose: Not Given Potassium Chloride (Pharmacy To Dose - Potassium Replacement) 1 dose .XX ASDIRECTED [facility] Potassium Chloride (Klor-Con M20) 40 meq PO ONETIME ONE Stop: 12/24/16 17:07 Last Admin: 12/24/16 17:34 Dose: 40 meq Ropinirole HCl (Requip) 0.5 mg PO BEDTIME PRN PRN Reason: Other Rosuvastatin Calcium (Crestor) 40 mg PO DAILY [facility] Saccharomyces Boulardii (Florastor) 500 mg PO ONETIME ONE Stop: 12/21/16 17:06 Last Admin: 12/21/16 18:55 Dose: 250 mg Saccharomyces Boulardii (Florastor) 250 mg PO ONETIME ONE Stop: 12/21/16 19:01 Last Admin: 12/21/16 19:27 Dose: 250 mg Simethicone (Simethicone) 80 mg PO Q6H PRN PRN Reason: Gas Simvastatin (Zocor) 10 mg PO BEDTIME [facility] Last Admin: 12/24/16 20:38 Dose: Not Given - Exam Quality Assessment: DVT Prophylaxis General: Alert, Oriented, Cooperative, No Acute Distress HEENT: Pupils Equal, Pupils Reactive, EOMI, Mucous Membr. Moist/[place] Neck: Supple, Trachea Midline, No JVD Lungs: Clear to Auscultation Cardiovascular: Regular Rate, Regular Rhythm GI/Abdominal Exam: Normal Bowel Sounds, Soft, Non-Tender, No Organomegaly, No Distention (Male) Exam: Deferred Back Exam: Normal Inspection Extremities: Normal Inspection, No Pedal Edema Skin: Warm Neurological: No New Focal Deficit Psy/Mental Status: Alert, Normal Affect, Normal Mood - Problem List Review Problem List Initiated/Reviewed/Updated: Yes - Plan Plan:: Assessment/Plan: Acute: Bilateral Pyelonephritis - Risk factors: BPH and Urinary Retention - He used to self-cath in September, was stopped at the end of October this year - He follows Dr. 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 Routine AM Labs Resume Home Meds SW/CM for d/c planning Code status: 1 LOS >96 hours for treatment, return to work likely
[2016-12-26] MEDS: Diltiazem 240 MG Cap.ER PO SCH (16:55)
[2016-12-26] MEDS: Temazepam 15 MG Cap PO PRN (21:13)
[2016-12-26] MEDS: Metoprolol Tartrate 50 MG Tab PO SCH (21:14)
[2016-12-26] MEDS: Rosuvastatin 10 MG Tab PO SCH (21:14)
[2016-12-26] MEDS: Finasteride 5 MG Tab PO SCH (21:15)
[2016-12-26] MEDS: rOPINIRole 0.25 MG Tab PO SCH (21:15)
[2016-12-26] MEDS: Tamsulosin 0.4 MG Cap.ER PO SCH (21:16)
[2016-12-27] MEDS: Insulin Aspart 100 Units/ML 3 ML Pen SUBCUT SCH ×2 (06:29→11:43)
[2016-12-27] MEDS: Pantoprazole 40 MG Tab.CR PO SCH (06:47)
[2016-12-27] MEDS: Simethicone 80 MG Tab.Chew PO SCH ×2 (06:47→11:50)
[2016-12-27 08:30] VITALS: BP 131/77
[2016-12-27] MEDS: Apixaban 5 MG Tab PO SCH (08:37)
[2016-12-27] MEDS: Cyanocobalamin (Vitamin B12) 1,000 MCG Tab PO SCH (08:37)
[2016-12-27] MEDS: Cholecalciferol (Vitamin D3) 1,000 Unit Tab PO SCH (08:37)
[2016-12-27] MEDS: Metoprolol Tartrate 25 MG Tab PO SCH (08:38)
[2016-12-27] MEDS: Losartan 25 MG Tab PO SCH (08:38)
[2016-12-27] MEDS: Allopurinol 100 MG Tab PO SCH (08:38)
[2016-12-27] MEDS: Saccharomyces Boulardii (Probiotic) 250 MG Cap PO SCH (08:38)
[2016-12-27] MEDS: cefTRIAXone 2 GM in Sodium Chloride 0.9% 100 ML IV SCH (08:39)
--- NOTE | 2016-12-27 11:34 | PCM.DCSUM1 ---
<Dominga Fabian - Last Filed: 12/27/16 11:29> Discharge Summary - Hospital Course Free Text/Narrative:: This is a 66-year-old white male with past medical history of hypertension, hyperlipidemia, history of paroxysmal atrial fibrillation on digoxin and eliquis , and history of sick sinus syndrome status post pacemaker placement who comes in for a direct admit due to bilateral pyelonephritis. Patient was recently seen in his primary care's office for initial workup of urinary issues. Patient carries history of BPH and urinary retention. He follows Dr. Lopez for his urologic issues. Back in September, he was doing self catheterization and was eventually stop at the end of October. He is currently on Flomax and Proscar for maintenance medications. About 4 weeks ago, the patient had urinary tract infection. He was treated with antibiotic and 2 weeks follow up issues negative UA. However, recently he again developed the same symptoms associated with hematuria and was also noted to have a fever of 104. His initial workup from the clinical available documents shows a CBC remarkable for hemoglobin of 10.6, hematocrit of 32.2, neutrophil absolute counts of 8.1, and ESR of 95. His chemistry is remarkable for glucose of 139, sodium of 129, chloride of 93, albumin of 2.2 and alkaline phosphatase of 130. His UA shows moderate blood urine, proteinuria, positive nitrite/leukocyte esterase is large and WBC of 51-200 and many bacteria. Patient is being admitted for treatment of pyelonephritis. He is full code. He is treated with IV abx Rocephin during his stay. BC were positive for ecoli. Sensitive to Rocephin which was continued for 6 days. Repeat blood cultures were negative. VSS and afebrile propr to discharge. Labs stabilized, CRP significantly improved. He will be discharged on Ceftin BID x 10 days. He was on reglan for gastroparesis and abdominal bloating and distension with modest results. He will see Dr. Taylor as outpatient for follow up for this, he was consulted during his hospital stay for this. He is to follow up [facility] PCP Dr. Uribe within 5-7 days of discharge for recheck. - Discharge Data Discharge Date: 12/27/16 (admit date 12/21/16) Discharge Disposition: Home, Self-Care 01 Condition: Good - Patient Summary/Data Operative Procedure(s) Performed: None Complications: None Consults: Consultations 12/21/16 17:00 Consult to Case Management [CONS] Routine Consult to Edge Cutting Machine Operator [CONS] Routine Consult to Spiritual Care [CONS] Routine OT Evaluation and Treatment [CONS] Routine PT Evaluation and Treatment [CONS] Routine 12/21/16 19:31 Consult to Dietary [Consult to Prospecting Observer] [CONS] Routine 12/24/16 09:24 Consult to Physician [CONS] Routine Labs Pending at D/C: None Recommended Follow-up Testing/Procedures: Follow up with PCP, Dr. Uribe within one week of discharge Planned Operative Procedure(s) after DC: None Hospital Course: As above - Patient Instructions Diet: Heart Healthy Diet Activity: As Tolerated Driving: May Drive Today Showering/Bathing: May Shower Notify Provider of: Fever, Increased Pain, Nausea and/or Vomiting - Discharge Plan Prescriptions/Med Rec: Cefuroxime [Ceftin] 250 mg PO BID #20 tablet Cholecalciferol (Vitamin D3) [Vitamin D3] 2,000 units PO DAILY #30 tablet Digoxin [Lanoxin] 125 mcg PO DAILY@1200 #30 tablet Docusate Sodium [Colace] 100 mg PO BID #60 cap Home Medications: Home Meds Apixaban [Eliquis] 5 mg PO BID 02/07/15 [History] Cholecalciferol (Vitamin D3) [Vitamin D3] 2 cap PO DAILY 02/07/15 [History] Cyanocobalamin (Vitamin B12) [Vitamin B12] 1,000 mcg PO DAILY 02/07/15 [History] Finasteride [Proscar] 5 mg PO BEDTIME 02/07/15 [History] Glucosamine/D3/Boswellia Eliane [Osteo Bi-Flex Caplet] 2 each PO DAILY 02/07/15 [ History] Omeprazole [Prilosec] 40 mg PO DAILY 02/07/15 [History] Tamsulosin [Flomax] 0.4 mg PO BEDTIME 02/07/15 [History] rOPINIRole [Requip] 1 - 2 tab PO BID 09/17/15 [History] Allopurinol [Zyloprim] 100 mg PO DAILY 12/21/16 [History] Diltiazem [Dilacor XR] 240 mg PO DAILY 12/21/16 [History] Dulaglutide [Trulicity] 1.5 mg SQ TH 12/21/16 [History] Losartan [Cozaar] 25 mg PO DAILY 12/21/16 [History] Metoprolol Tartrate 25 mg PO QAM 12/21/16 [History] Metoprolol Tartrate 50 mg PO QPM 12/21/16 [History] Rosuvastatin Calcium [Crestor] 40 mg PO DAILY 12/21/16 [History] Cefuroxime [Ceftin] 250 mg PO BID #20 tablet 12/27/16 [Rx] Cholecalciferol (Vitamin D3) [Vitamin D3] 2,000 units PO DAILY #30 tablet [Rx] Digoxin [Lanoxin] 125 mcg PO DAILY@1200 #30 tablet 12/27/16 [Rx] Docusate Sodium [Colace] 100 mg PO BID #60 cap 12/27/16 [Rx] Patient Handouts: Pyelonephritis, Adult, [id number] Referrals: Harry Little MD [Physician] - Antoni Lopez MD [Physician] - (patient needs to call office to schedule appt. hopefully see Dr. Lopez this Summer yet.) - Discharge Summary/Plan Comment DC Time >30 min.: Yes (40 min) - General Info Date of Service: 12/27/16 Admission Dx/Problem (Free Text: Pyelonephritis Functional Status: Reports: Pain Controlled, Tolerating Diet, Ambulating, Urinating. Denies: New Symptoms - Review of Systems General: Reports: No Symptoms. Denies: Fever HEENT: Reports: No Symptoms Pulmonary: Reports: No Symptoms Cardiovascular: Reports: No Symptoms Gastrointestinal: Reports: No Symptoms. Denies: Abdominal Pain, Diarrhea, Nausea, Vomiting Genitourinary: Reports: No Symptoms. Denies: Dysuria, Frequency, Burning, Urgency Musculoskeletal: Reports: No Symptoms Skin: Reports: No Symptoms Neurological: Reports: No Symptoms Psychiatric: Reports: No Symptoms - Patient Data Vitals - Most Recent: Last Vital Signs Temp 98.2 F 12/27/16 08:29 Pulse 60 12/27/16 08:38 Resp 12 12/27/16 08:29 BP 131/77 12/27/16 08:38 Pulse Ox 96 12/27/16 08:29 Weight - Most Recent: 85.956 kg I&O - Last 24 hours: Intake & Output 12/26/16 12/27/1617 22:59 06:59 14:59 Intake Total 970 1650 300 Output Total 1150 1650 Balance -180 0 300 Lab Results - Last 24 hrs: Laboratory Results - last 24 hr 12/26/16 12/26/16 12/27/16 Range/Units 16:56 21:07 06:19 WBC (4.23-9.07) K/mm3 RBC (4.63-6.08) M/mm3 Hgb (13.7-17.5) gm/L Hct (40.1-51.0) % MCV (79.0-92.2) fl MCH (25.7-32.2) pg MCHC (32.2-35.5) g/dl RDW Std Deviation (35.1-43.9) fL Plt Count (163-337) K/mm3 MPV (9.4-12.3) fl Neut % (Auto) (34.0-67.9) % Lymph % (Auto) (21.8-53.1) % Ransom % (Auto) (5.3-12.2) % Eos % (Auto) (0.8-7.0) Baso % (Auto) (0.1-1.2) % Neut # (Auto) (1.78-5.38) K/mm3 Lymph # (Auto) (1.32-3.57) K/mm3 Ransom # (Auto) (0.30-0.82) K/mm3 Eos # (Auto) (0.04-0.54) K/mm3 Baso # (Auto) (0.01-0.08) K/mm3 Sodium (136-145) mEq/L Potassium (3.5-5.1) mEq/L Chloride (98-107) mEq/L Carbon Dioxide (21-32) mEq/L Anion Gap (5-15) BUN (7-18) mg/dL Creatinine (0.7-1.3) mg/dL Est Cr Clr Drug Dosing mL/min Estimated GFR (MDRD) (>60) mL/min BUN/Creatinine Ratio (14-18) Glucose (80-115) mg/dL POC Glucose 107 138 H 109 (80-115) mg/dL Calcium (8.5-10.1) mg/dL C-Reactive Protein (<1.0) mg/dL 12/27/16 12/27/16 Range/Units 06:40 06:40 WBC 6.94 (4.23-9.07) K/mm3 RBC 3.85 L (4.63-6.08) M/mm3 Hgb 10.6 L (13.7-17.5) gm/L Hct 33.3 L (40.1-51.0) % MCV 86.5 (79.0-92.2) fl MCH 27.5 (25.7-32.2) pg MCHC 31.8 L (32.2-35.5) g/dl RDW Std Deviation 50.3 H (35.1-43.9) fL Plt Count 463 H (163-337) K/mm3 MPV 8.6 L (9.4-12.3) fl Neut % (Auto) 76.9 H (34.0-67.9) % Lymph % (Auto) 10.2 L (21.8-53.1) % Ransom % (Auto) 9.7 (5.3-12.2) % Eos % (Auto) 1.9 (0.8-7.0) Baso % (Auto) 0.1 (0.1-1.2) % Neut # (Auto) 5.34 (1.78-5.38) K/mm3 Lymph # (Auto) 0.71 L (1.32-3.57) K/mm3 Ransom # (Auto) 0.67 (0.30-0.82) K/mm3 Eos # (Auto) 0.13 (0.04-0.54) K/mm3 Baso # (Auto) 0.01 (0.01-0.08) K/mm3 Sodium 142 (136-145) mEq/L Potassium 3.9 (3.5-5.1) mEq/L Chloride 105 (98-107) mEq/L Carbon Dioxide 30 (21-32) mEq/L Anion Gap 10.9 (5-15) BUN 11 (7-18) mg/dL Creatinine 1.1 (0.7-1.3) mg/dL Est Cr Clr Drug Dosing 67.84 mL/min Estimated GFR (MDRD) > 60 (>60) mL/min BUN/Creatinine Ratio 10.0 L (14-18) Glucose 121 H (80-115) mg/dL POC Glucose (80-115) mg/dL Calcium 8.9 (8.5-10.1) mg/dL C-Reactive Protein 6.0 H* (<1.0) mg/dL SERAFIN Results - Last 24 hrs: Microbiology 12/25/16 07:15 Aerobic Blood Culture - Preliminary Blood - Venous - Lab Draw NO GROWTH AFTER 2 DAYS Anaerobic Blood Culture - Preliminary NO GROWTH AFTER 2 DAYS 12/25/16 07:05 Aerobic Blood Culture - Preliminary Blood - Venous NO GROWTH AFTER 2 DAYS Anaerobic Blood Culture - Preliminary NO GROWTH AFTER 2 DAYS Med Orders - Current: Current Medications Acetaminophen (Tylenol) 650 mg PO Q4H PRN PRN Reason: Pain (Mild 1-3)/fever Last Admin: 12/21/16 18:36 Dose: 650 mg Hydrocodone Bitart/Acetaminophen ([place] 325-5 Mg) 1 tab PO Q4H PRN PRN Reason: Pain (moderate 4-6) Last Admin: 12/22/16 21:34 Dose: 1 tab Albuterol/Ipratropium (Duoneb 3.0-0.5 Mg/3 Ml) 3 ml NEB Q4H PRN PRN Reason: Shortness Of Breath/wheezing Allopurinol (Zyloprim) 100 mg PO DAILY [facility] Last Admin: 12/27/16 08:38 Dose: 100 mg Apixaban (Eliquis) 5 mg PO BID [facility] Last Admin: 12/27/16 08:37 Dose: 5 mg Bisacodyl (Dulcolax) 5 mg PO DAILY PRN PRN Reason: Constipation Cholecalciferol (Vitamin D3) 2,000 units PO DAILY [facility] Last Admin: 12/27/16 08:37 Dose: 2,000 units Cyanocobalamin (Vitamin B12) 1,000 mcg PO DAILY [facility] Last Admin: 12/27/16 08:37 Dose: 1,000 mcg Dextrose/Water (Dextrose 50% In Water) 50 ml IVPUSH ASDIRECTED PRN PRN Reason: Hypoglycemia Digoxin (Lanoxin) 125 mcg PO DAILY@1200 [facility] Last Admin: 12/26/16 12:07 Dose: 125 mcg Diltiazem HCl (Dilacor Xr) 240 mg PO DAILY@1600 [facility] Last Admin: 12/26/16 16:55 Dose: 240 mg Docusate Sodium (Colace) 100 mg PO BID PRN PRN Reason: Constipation Last Admin: 12/25/16 21:24 Dose: 100 mg Finasteride (Proscar) 5 mg PO BEDTIME [facility] Last Admin: 12/26/16 21:15 Dose: 5 mg Hydralazine HCl (Apresoline) 20 mg IVPUSH Q4H PRN PRN Reason: Hypertension Hydromorphone HCl (Dilaudid) 0.25 mg IVPUSH Q2H PRN PRN Reason: Pain (severe 7-10) Ceftriaxone Sodium 2 gm/ (Sodium Chloride) 100 mls @ 200 mls/hr IV Q24H [facility] Last Admin: 12/27/16 08:39 Dose: 200 mls/hr Insulin Aspart (Novolog) 0 unit SUBCUT QIDACANDBED [facility] PRN Reason: Protocol Last Admin: 12/27/16 06:29 Dose: Not Given Lorazepam (Ativan) 1 mg IV Q6H PRN PRN Reason: Anxiety Losartan Potassium (Cozaar) 25 mg PO DAILY [facility] Last Admin: 12/27/16 08:38 Dose: 25 mg Metoclopramide HCl (Reglan) 10 mg IVPUSH Q6H PRN PRN Reason: GASTROPARESIS Metoprolol Tartrate (Lopressor) 5 mg IVPUSH Q4H PRN PRN Reason: Tachycardia Metoprolol Tartrate (Lopressor) 25 mg PO QAM [facility] Last Admin: 12/27/16 08:38 Dose: 25 mg Metoprolol Tartrate (Lopressor) 50 mg PO BEDTIME [facility] Last Admin: 12/26/16 21:14 Dose: 50 mg Ondansetron HCl (Zofran) 4 mg IV Q6H PRN PRN Reason: Nausea/Vomiting Last Admin: 12/22/16 16:53 Dose: 4 mg Pantoprazole Sodium (Protonix) 40 mg PO DAILY@0700 [facility] Last Admin: 12/27/16 06:47 Dose: 40 mg Polyethylene Glycol (Miralax) 17 gm PO DAILY PRN PRN Reason: Constipation Last Admin: 12/24/16 17:24 Dose: 17 gm Ropinirole HCl (Requip) 0.5 mg PO BEDTIME [facility] Last Admin: 12/26/16 21:15 Dose: 0.5 mg Ropinirole HCl (Requip) 0.5 mg PO BEDTIME PRN PRN Reason: Other Rosuvastatin Calcium (Crestor) 40 mg PO BEDTIME [facility] Last Admin: 12/26/16 21:14 Dose: 40 mg Saccharomyces Boulardii (Florastor) 500 mg PO DAILY [facility] Last Admin: 12/27/16 08:38 Dose: 500 mg Senna/Docusate Sodium (Senna Plus) 1 tab PO BID PRN PRN Reason: Constipation Simethicone (Simethicone) 80 mg PO QIDACANDBED [facility] Last Admin: 12/27/16 06:47 Dose: 80 mg Tamsulosin HCl (Flomax) 0.4 mg PO BEDTIME [facility] Last Admin: 12/26/16 21:16 Dose: 0.4 mg Temazepam (Restoril) 15 mg PO BEDTIME PRN PRN Reason: Sleep Last Admin: 12/26/16 21:13 Dose: 15 mg Discontinued Medications Digoxin (Lanoxin) 125 mcg PO DAILY [facility] Diltiazem HCl (Dilacor Xr) 240 mg PO DAILY [facility] Last Admin: 12/22/16 09:31 Dose: Not Given Hydromorphone HCl (Dilaudid) 0.25 mg IVPUSH Q2H PRN PRN Reason: Pain (severe 7-10) Last Admin: 12/21/16 20:10 Dose: 0.25 mg Levofloxacin/Dextrose 750 mg/ (Premix) 150 mls @ 100 mls/hr IV Q24H [facility] Last Admin: 12/22/16 11:44 Dose: 100 mls/hr Levofloxacin/Dextrose 750 mg/ (Premix) 150 mls @ 100 mls/hr IV ONETIME ONE Stop: 12/21/16 18:30 Last Admin: 12/21/16 18:15 Dose: 100 mls/hr Promethazine HCl 12.5 mg/ (Sodium Chloride) 50.5 mls @ 100 mls/hr IV Q6H PRN PRN Reason: Nausea/Vomiting Sodium Chloride (Normal Saline) 1,000 mls @ 125 mls/hr IV ASDIRECTED [facility] Last Admin: 12/23/16 04:20 Dose: 125 mls/hr Magnesium Sulfate 2 gm/ Premix 50 mls @ 25 mls/hr IV ONETIME ONE Stop: 12/22/16 09:59 Last Admin: 12/22/16 09:46 Dose: 25 mls/hr Magnesium Sulfate 2 gm/ Premix 50 mls @ 25 mls/hr IV ONETIME ONE Stop: 12/24/16 14:55 Last Admin: 12/24/16 13:14 Dose: 25 mls/hr Losartan Potassium (Cozaar) 25 mg PO DAILY [facility] Magnesium Sulfate (Pharmacy To Dose - Magnesium Replacement) 1 dose .XX ASDIRECTED [facility] Metoclopramide HCl (Reglan) 10 mg IVPUSH Q6H [facility] Last Admin: 12/25/16 08:15 Dose: 10 mg Metoprolol Tartrate (Lopressor) 12.5 mg PO BID [facility] Last Admin: 12/21/16 20:22 Dose: 12.5 mg NonformTrulicity (1.5 Mg) 1.5 mg SQ TH [facility] Last Admin: 12/21/16 22:20 Dose: Not Given Oral Electrolytes (Thermotabs) 1 each PO TID PRN PRN Reason: Other Phenazopyridine HCl (Urinary Pain Relief) 95 mg PO TIDPC [facility] Last Admin: 12/23/16 13:19 Dose: Not Given Potassium Chloride (Pharmacy To Dose - Potassium Replacement) 1 dose .XX ASDIRECTED [facility] Potassium Chloride (Klor-Con M20) 40 meq PO ONETIME ONE Stop: 12/24/16 17:07 Last Admin: 12/24/16 17:34 Dose: 40 meq Ropinirole HCl (Requip) 0.5 mg PO BEDTIME PRN PRN Reason: Other Rosuvastatin Calcium (Crestor) 40 mg PO DAILY [facility] Saccharomyces Boulardii (Florastor) 500 mg PO ONETIME ONE Stop: 12/21/16 17:06 Last Admin: 12/21/16 18:55 Dose: 250 mg Saccharomyces Boulardii (Florastor) 250 mg PO ONETIME ONE Stop: 12/21/16 19:01 Last Admin: 12/21/16 19:27 Dose: 250 mg Simethicone (Simethicone) 80 mg PO Q6H PRN PRN Reason: Gas Simvastatin (Zocor) 10 mg PO BEDTIME [facility] Last Admin: 12/24/16 20:38 Dose: Not Given - Exam Quality Assessment: Reports: DVT Prophylaxis General: Reports: Alert, Oriented, Cooperative, No Acute Distress HEENT: Reports: Pupils Equal, Pupils Reactive, EOMI, Mucous Membr. Moist/[place]ck: Reports: Supple Lungs: Reports: Clear to Auscultation, Normal Respiratory Effort Cardiovascular: Reports: Irregular Rhythm GI/Abdominal Exam: Normal Bowel Sounds (Male) Exam: Deferred Neurological: Reports: No New Focal Deficit Psy/Mental Status: Reports: Alert, Normal Affect, Normal Mood *Q Meaningful Use (DIS) - VTE *Q VTE Criteria *Q: - Stroke *Q Stroke Criteria *Q: - AMI *Q AMI Criteria *Q: <Nani Wild - Last Filed: 12/27/16 12:31> Discharge Summary - Hospital Course Free Text/Narrative:: Greatly improved with negative BCs; will need to keep appt including Gen Surg on 12/28/16 as scheduled. may return to work 12/29/16 without restrictions. - Patient Summary/Data Consults: Consultations 12/21/16 17:00 Consult to Case Management [CONS] Routine Consult to Edge Cutting Machine Operator [CONS] Routine Consult to Spiritual Care [CONS] Routine OT Evaluation and Treatment [CONS] Routine PT Evaluation and Treatment [CONS] Routine 12/21/16 19:31 Consult to Dietary [Consult to Prospecting Observer] [CONS] Routine 12/24/16 09:24 Consult to Physician [CONS] Routine - Patient Data Vitals - Most Recent: Last Vital Signs Temp 36.8 C 12/27/16 08:29 Pulse 61 12/27/16 11:50 Resp 12 12/27/16 08:29 BP 131/77 12/27/16 08:38 Pulse Ox 96 12/27/16 08:29 I&O - Last 24 hours: Intake & Output 12/26/16 12/27/16 12/27/16 22:59 06:59 14:59 Intake Total 970 1650 300 Output Total 1150 1650 Balance -180 0 300 Lab Results - Last 24 hrs: Laboratory Results - last 24 hr 12/26/16 12/26/16 12/27/16 Range/Units 16:56 21:07 06:19 WBC (4.23-9.07) K/mm3 RBC (4.63-6.08) M/mm3 Hgb (13.7-17.5) gm/L Hct (40.1-51.0) % MCV (79.0-92.2) fl MCH (25.7-32.2) pg MCHC (32.2-35.5) g/dl RDW Std Deviation (35.1-43.9) fL Plt Count (163-337) K/mm3 MPV (9.4-12.3) fl Neut % (Auto) (34.0-67.9) % Lymph % (Auto) (21.8-53.1) % Ransom % (Auto) (5.3-12.2) % Eos % (Auto) (0.8-7.0) Baso % (Auto) (0.1-1.2) % Neut # (Auto) (1.78-5.38) K/mm3 Lymph # (Auto) (1.32-3.57) K/mm3 Ransom # (Auto) (0.30-0.82) K/mm3 Eos # (Auto) (0.04-0.54) K/mm3 Baso # (Auto) (0.01-0.08) K/mm3 Sodium (136-145) mEq/L Potassium (3.5-5.1) mEq/L Chloride (98-107) mEq/L Carbon Dioxide (21-32) mEq/L Anion Gap (5-15) BUN (7-18) mg/dL Creatinine (0.7-1.3) mg/dL Est Cr Clr Drug Dosing mL/min Estimated GFR (MDRD) (>60) mL/min BUN/Creatinine Ratio (14-18) Glucose (80-115) mg/dL POC Glucose 107 138 H 109 (80-115) mg/dL Calcium (8.5-10.1) mg/dL C-Reactive Protein (<1.0) mg/dL 12/27/16 12/27/16 12/27/16 Range/Units 06:40 06:40 11:41 WBC 6.94 (4.23-9.07) K/mm3 RBC 3.85 L (4.63-6.08) M/mm3 Hgb 10.6 L (13.7-17.5) gm/L Hct 33.3 L (40.1-51.0) % MCV 86.5 (79.0-92.2) fl MCH 27.5 (25.7-32.2) pg MCHC 31.8 L (32.2-35.5) g/dl RDW Std Deviation 50.3 H (35.1-43.9) fL Plt Count 463 H (163-337) K/mm3 MPV 8.6 L (9.4-12.3) fl Neut % (Auto) 76.9 H (34.0-67.9) % Lymph % (Auto) 10.2 L (21.8-53.1) % Ransom % (Auto) 9.7 (5.3-12.2) % Eos % (Auto) 1.9 (0.8-7.0) Baso % (Auto) 0.1 (0.1-1.2) % Neut # (Auto) 5.34 (1.78-5.38) K/mm3 Lymph # (Auto) 0.71 L (1.32-3.57) K/mm3 Ransom # (Auto) 0.67 (0.30-0.82) K/mm3 Eos # (Auto) 0.13 (0.04-0.54) K/mm3 Baso # (Auto) 0.01 (0.01-0.08) K/mm3 Sodium 142 (136-145) mEq/L Potassium 3.9 (3.5-5.1) mEq/L Chloride 105 (98-107) mEq/L Carbon Dioxide 30 (21-32) mEq/L Anion Gap 10.9 (5-15) BUN 11 (7-18) mg/dL Creatinine 1.1 (0.7-1.3) mg/dL Est Cr Clr Drug Dosing 67.84 mL/min Estimated GFR (MDRD) > 60 (>60) mL/min BUN/Creatinine Ratio 10.0 L (14-18) Glucose 121 H (80-115) mg/dL POC Glucose 131 H (80-115) mg/dL Calcium 8.9 (8.5-10.1) mg/dL C-Reactive Protein 6.0 H* (<1.0) mg/dL SERAFIN Results - Last 24 hrs: Microbiology 12/25/16 07:15 Aerobic Blood Culture - Preliminary Blood - Venous - Lab Draw NO GROWTH AFTER 2 DAYS Anaerobic Blood Culture - Preliminary NO GROWTH AFTER 2 DAYS 12/25/16 07:05 Aerobic Blood Culture - Preliminary Blood - Venous NO GROWTH AFTER 2 DAYS Anaerobic Blood Culture - Preliminary NO GROWTH AFTER 2 DAYS Med Orders - Current: Current Medications Acetaminophen (Tylenol) 650 mg PO Q4H PRN PRN Reason: Pain (Mild 1-3)/fever Last Admin: 12/21/16 18:36 Dose: 650 mg Hydrocodone Bitart/Acetaminophen ([place] 325-5 Mg) 1 tab PO Q4H PRN PRN Reason: Pain (moderate 4-6) Last Admin: 12/22/16 21:34 Dose: 1 tab Albuterol/Ipratropium (Duoneb 3.0-0.5 Mg/3 Ml) 3 ml NEB Q4H PRN PRN Reason: Shortness Of Breath/wheezing Allopurinol (Zyloprim) 100 mg PO DAILY [facility] Last Admin: 12/27/16 08:38 Dose: 100 mg Apixaban (Eliquis) 5 mg PO BID [facility] Last Admin: 12/27/16 08:37 Dose: 5 mg Bisacodyl (Dulcolax) 5 mg PO DAILY PRN PRN Reason: Constipation Cholecalciferol (Vitamin D3) 2,000 units PO DAILY [facility] Last Admin: 12/27/16 08:37 Dose: 2,000 units Cyanocobalamin (Vitamin B12) 1,000 mcg PO DAILY [facility] Last Admin: 12/27/16 08:37 Dose: 1,000 mcg Dextrose/Water (Dextrose 50% In Water) 50 ml IVPUSH ASDIRECTED PRN PRN Reason: Hypoglycemia Digoxin (Lanoxin) 125 mcg PO DAILY@1200 [facility] Last Admin: 12/27/16 11:50 Dose: 125 mcg Diltiazem HCl (Dilacor Xr) 240 mg PO DAILY@1600 [facility] Last Admin: 12/26/16 16:55 Dose: 240 mg Docusate Sodium (Colace) 100 mg PO BID PRN PRN Reason: Constipation Last Admin: 12/25/16 21:24 Dose: 100 mg Finasteride (Proscar) 5 mg PO BEDTIME [facility] Last Admin: 12/26/16 21:15 Dose: 5 mg Hydralazine HCl (Apresoline) 20 mg IVPUSH Q4H PRN PRN Reason: Hypertension Hydromorphone HCl (Dilaudid) 0.25 mg IVPUSH Q2H PRN PRN Reason: Pain (severe 7-10) Ceftriaxone Sodium 2 gm/ (Sodium Chloride) 100 mls @ 200 mls/hr IV Q24H [facility] Last Admin: 12/27/16 08:39 Dose: 200 mls/hr Insulin Aspart (Novolog) 0 unit SUBCUT QIDACANDBED [facility] PRN Reason: Protocol Last Admin: 12/27/16 11:43 Dose: Not Given Lorazepam (Ativan) 1 mg IV Q6H PRN PRN Reason: Anxiety Losartan Potassium (Cozaar) 25 mg PO DAILY [facility] Last Admin: 12/27/16 08:38 Dose: 25 mg Metoclopramide HCl (Reglan) 10 mg IVPUSH Q6H PRN PRN Reason: GASTROPARESIS Metoprolol Tartrate (Lopressor) 5 mg IVPUSH Q4H PRN PRN Reason: Tachycardia Metoprolol Tartrate (Lopressor) 25 mg PO QAM [facility] Last Admin: 12/27/16 08:38 Dose: 25 mg Metoprolol Tartrate (Lopressor) 50 mg PO BEDTIME [facility] Last Admin: 12/26/16 21:14 Dose: 50 mg Ondansetron HCl (Zofran) 4 mg IV Q6H PRN PRN Reason: Nausea/Vomiting Last Admin: 12/22/16 16:53 Dose: 4 mg Pantoprazole Sodium (Protonix) 40 mg PO DAILY@0700 [facility] Last Admin: 12/27/16 06:47 Dose: 40 mg Polyethylene Glycol (Miralax) 17 gm PO DAILY PRN PRN Reason: Constipation Last Admin: 12/24/16 17:24 Dose: 17 gm Ropinirole HCl (Requip) 0.5 mg PO BEDTIME [facility] Last Admin: 12/26/16 21:15 Dose: 0.5 mg Ropinirole HCl (Requip) 0.5 mg PO BEDTIME PRN PRN Reason: Other Rosuvastatin Calcium (Crestor) 40 mg PO BEDTIME [facility] Last Admin: 12/26/16 21:14 Dose: 40 mg Saccharomyces Boulardii (Florastor) 500 mg PO DAILY [facility] Last Admin: 12/27/16 08:38 Dose: 500 mg Senna/Docusate Sodium (Senna Plus) 1 tab PO BID PRN PRN Reason: Constipation Simethicone (Simethicone) 80 mg PO QIDACANDBED [facility] Last Admin: 12/27/16 11:50 Dose: 80 mg Tamsulosin HCl (Flomax) 0.4 mg PO BEDTIME [facility] Last Admin: 12/26/16 21:16 Dose: 0.4 mg Temazepam (Restoril) 15 mg PO BEDTIME PRN PRN Reason: Sleep Last Admin: 12/26/16 21:13 Dose: 15 mg Discontinued Medications Digoxin (Lanoxin) 125 mcg PO DAILY [facility] Diltiazem HCl (Dilacor Xr) 240 mg PO DAILY [facility] Last Admin: 12/22/16 09:31 Dose: Not Given Hydromorphone HCl (Dilaudid) 0.25 mg IVPUSH Q2H PRN PRN Reason: Pain (severe 7-10) Last Admin: 12/21/16 20:10 Dose: 0.25 mg Levofloxacin/Dextrose 750 mg/ (Premix) 150 mls @ 100 mls/hr IV Q24H [facility] Last Admin: 12/22/16 11:44 Dose: 100 mls/hr Levofloxacin/Dextrose 750 mg/ (Premix) 150 mls @ 100 mls/hr IV ONETIME ONE Stop: 12/21/16 18:30 Last Admin: 12/21/16 18:15 Dose: 100 mls/hr Promethazine HCl 12.5 mg/ (Sodium Chloride) 50.5 mls @ 100 mls/hr IV Q6H PRN PRN Reason: Nausea/Vomiting Sodium Chloride (Normal Saline) 1,000 mls @ 125 mls/hr IV ASDIRECTED [facility] Last Admin: 12/23/16 04:20 Dose: 125 mls/hr Magnesium Sulfate 2 gm/ Premix 50 mls @ 25 mls/hr IV ONETIME ONE Stop: 12/22/16 09:59 Last Admin: 12/22/16 09:46 Dose: 25 mls/hr Magnesium Sulfate 2 gm/ Premix 50 mls @ 25 mls/hr IV ONETIME ONE Stop: 12/24/16 14:55 Last Admin: 12/24/16 13:14 Dose: 25 mls/hr Losartan Potassium (Cozaar) 25 mg PO DAILY [facility] Magnesium Sulfate (Pharmacy To Dose - Magnesium Replacement) 1 dose .XX ASDIRECTED [facility] Metoclopramide HCl (Reglan) 10 mg IVPUSH Q6H [facility] Last Admin: 12/25/16 08:15 Dose: 10 mg Metoprolol Tartrate (Lopressor) 12.5 mg PO BID [facility] Last Admin: 12/21/16 20:22 Dose: 12.5 mg NonformTrulicity (1.5 Mg) 1.5 mg SQ TH [facility] Last Admin: 12/21/16 22:20 Dose: Not Given Oral Electrolytes (Thermotabs) 1 each PO TID PRN PRN Reason: Other Phenazopyridine HCl (Urinary Pain Relief) 95 mg PO TIDPC [facility] Last Admin: 12/23/16 13:19 Dose: Not Given Potassium Chloride (Pharmacy To Dose - Potassium Replacement) 1 dose .XX ASDIRECTED [facility] Potassium Chloride (Klor-Con M20) 40 meq PO ONETIME ONE Stop: 12/24/16 17:07 Last Admin: 12/24/16 17:34 Dose: 40 meq Ropinirole HCl (Requip) 0.5 mg PO BEDTIME PRN PRN Reason: Other Rosuvastatin Calcium (Crestor) 40 mg PO DAILY [facility] Saccharomyces Boulardii (Florastor) 500 mg PO ONETIME ONE Stop: 12/21/16 17:06 Last Admin: 12/21/16 18:55 Dose: 250 mg Saccharomyces Boulardii (Florastor) 250 mg PO ONETIME ONE Stop: 12/21/16 19:01 Last Admin: 12/21/16 19:27 Dose: 250 mg Simethicone (Simethicone) 80 mg PO Q6H PRN PRN Reason: Gas Simvastatin (Zocor) 10 mg PO BEDTIME [facility] Last Admin: 12/24/16 20:38 Dose: Not Given *Q Meaningful Use (DIS) - VTE *Q VTE Criteria *Q: - Stroke *Q Stroke Criteria *Q: - AMI *Q AMI Criteria *Q:
[2016-12-27] MEDS: Digoxin 125 MCG Tab PO SCH (11:50)
== END 2016-12-27 14:07 | disposition home or self-care (01) | DRG 690 ==
LOC: JD.MS 15:44 → UNDOADMIN 15:44 → JD.MS 16:57
PROVIDERS: ADMIT Internal Medicine; ATTEND Internal Medicine
DX: N12 Tubulo-interstitial nephritis, not specified as acute or chronic (principal); E87.1 Hypo-osmolality and hyponatremia; E11.65 Type 2 diabetes mellitus with hyperglycemia; E11.43 Type 2 diabetes mellitus with diabetic autonomic (poly)neuropathy; K31.84 Gastroparesis; Z79.4 Long term (current) use of insulin; I25.10 Atherosclerotic heart disease of native coronary artery without angina pectoris; I10 Essential (primary) hypertension; E78.5 Hyperlipidemia, unspecified; I48.0 Paroxysmal atrial fibrillation; Z79.01 Long term (current) use of anticoagulants; Z95.0 Presence of cardiac pacemaker; N40.0 Benign prostatic hyperplasia without lower urinary tract symptoms; R33.9 Retention of urine, unspecified; K21.9 Gastro-esophageal reflux disease without esophagitis; G25.81 Restless legs syndrome; E53.8 Deficiency of other specified B group vitamins; E55.9 Vitamin D deficiency, unspecified; Z87.891 Personal history of nicotine dependence; Z79.899 Other long term (current) drug therapy
CPT/HCPCS: 36415; 80048; 80162; 82962; 83036; 83735; 84450; 84460; 85025; 86140; 87040; 87184; 87186; 97161-GP; 97165-GO; A9270-GY; J0696; J1170; J1815-GY; J1956; J2405; J2765; J3475; J7030; J7040

== ENCOUNTER 2017-03-05 07:32 | Day surgery (SDC) | payer OTHER ==
[~2017-03-05 07:32] MED LIST: Lactated Ringers 1,000 ML IV SCH; Lidocaine 1%/Sod Bicarbonate in NS 8.4% 1 ML Syringe IV PRN; Sodium Chloride 0.9% 10 ML Syringe FLUSH PRN
--- NOTE | 2017-03-05 08:03 | PCM.PREANE ---
Preanesthetic Assessment - Anesthesia/Transfusion/Family Hx Anesthesia History: Prior Anesthesia Without Reaction Family History of Anesthesia Reaction: No Transfusion History: No Prior Transfusion(s) - Review of Systems General: Other Pulmonary: Other (COPD, former smoker, ) Cardiovascular: Other (pacermaker, HTN, cardiomyopathy, history of TN, afib, chronic anticoagulation) Gastrointestinal: Other (GERD, rectal bleeding, low hemoglobin) Other: Reports: Easy Bruising (renal insufficiency) - Physical Assessment NPO Status Date: 03/04/17 NPO Status Time: 20:00 Pulse: 59 O2 Sat by Pulse Oximetry: 97 Respiratory Rate: 16 Blood Pressure: 124/80 Temperature: 36.6 C Height: 1.75 m Weight: 85.956 kg ASA Class: 3 Mental Status: Alert & Oriented x3 Airway Class: Mallampati = 2 Dentition: Reports: Normal Dentition, Dentures Thyro-Mental Finger Breadths: 3 Mouth Opening Finger Breadths: 3 ROM/Head Extension: Full Lungs: Clear to Auscultation, Normal Respiratory Effort Cardiovascular: Regular Rate, Regular Rhythm - Allergies Allergies/Adverse Reactions: Allergies Allergy/AdvReac Type Severity Reaction Status Date / Time No Known Allergies Allergy Verified 09/17/15 17:27 - Blood Blood Available: No Product(s) Available: None - Anesthesia Plan Pre-Op Medication Ordered: None Beta Triston: Metoprolol Med Last Dose Date: 03/05/17 Med Last Dose Time: 06:00 - Acknowledgements Anesthesia Type Planned: MAC Pt an Appropriate Candidate for the Planned Anesthesia: Yes Alternatives and Risks of Anesthesia Discussed w Pt/Guardian: Yes Pt/Guardian Understands and Agrees with Anesthesia Plan: Yes PreAnesthesia Questionnaire HEENT History: Reports: Other (See Below) Other HEENT History: hearing loss Cardiovascular History: Reports: Afib, Cardiomyopathy, High Cholesterol, Hypertension, TN, Pacemaker, Other (See Below) Other Cardiovascular History: aflutter Respiratory History: Reports: COPD, Other (See Below) Other Respiratory History: pnumonia Gastrointestinal History: Reports: GERD, Hiatal Hernia, Other (See Below) Other Gastrointestinal History: barretts esophagus Genitourinary History: Reports: Other (See Below) Other Genitourinary History: enlarged prostate, prostatitis, renal insufficiency [employer]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: None Musculoskeletal History: Reports: Arthritis, Gout, Other (See Below) Other Musculoskeletal History: joint pain Neurological History: Reports: None Psychiatric History: Reports: None Endocrine/Metabolic History: Reports: Diabetes, Type II Hematologic History: Reports: Other (See Below) Other Hematologic History: chronic anticoagulation Immunologic History: Reports: None Oncologic (Cancer) History: Reports: None Dermatologic History: Reports: None - Infectious Disease History Infectious Disease History: Reports: Measles, Mumps - Past Surgical History Head Surgeries/Procedures: Reports: None HEENT Surgical History: Reports: Tonsillectomy Cardiovascular Surgical History: Reports: Pacer Respiratory Surgical History: Reports: None GI Surgical History: Reports: Colonoscopy, EGD Female Surgical History: Reports: None Male Surgical History: Reports: None Neurological Surgical History: Reports: Laminectomy Other Musculoskeletal Surgeries/Procedures:: neck and back surgery Oncologic Surgical History: Reports: None Dermatological Surgical History: Reports: None - SUBSTANCE USE Smoking Status *Q: Former Smoker Tobacco Use Within Last Twelve Months: Cigarettes Second Hand Smoke Exposure: No Days Per Week of Alcohol Use: 5 Number of Drinks Per Day: 3 Total Drinks Per Week: 15 Recreational Drug Use History: No - HOME MEDS Home Medications: Home Meds RX: Apixaban [Eliquis] 5 mg PO BID 02/07/15 [History] RX: Cyanocobalamin (Vitamin B12) [Vitamin B12] 1,000 mcg PO DAILY 02/07/15 [ History] RX: Finasteride [Proscar] 5 mg PO BEDTIME 02/07/15 [History] RX: Glucosamine/D3/Boswellia Eliane [Osteo Bi-Flex Caplet] 2 each PO DAILY [History] RX: Omeprazole [Prilosec] 40 mg PO DAILY 02/07/15 [History] RX: Tamsulosin [Flomax] 0.4 mg PO BEDTIME 02/07/15 [History] RX: rOPINIRole [Requip] 1 - 2 tab PO BID 09/17/15 [History] RX: Allopurinol [Zyloprim] 100 mg PO DAILY 12/21/16 [History] RX: Diltiazem [Dilacor XR] 240 mg PO DAILY 12/21/16 [History] RX: Dulaglutide [Trulicity] 1.5 mg SQ TH 12/21/16 [History] RX: Losartan [Cozaar] 25 mg PO DAILY 12/21/16 [History] RX: Metoprolol Tartrate 25 mg PO QAM 12/21/16 [History] RX: Metoprolol Tartrate 50 mg PO QPM 12/21/16 [History] RX: Rosuvastatin Calcium [Crestor] 40 mg PO DAILY 12/21/16 [History] RX: Cholecalciferol (Vitamin D3) [Vitamin D3] 2,000 units PO DAILY #30 tablet [Rx] Mirabegron [Myrbetriq] 25 mg PO DAILY 03/02/17 [History] - CURRENT (IN HOUSE) MEDS Current Meds: Current Medications Lactated Ringer's (Ringers, Lactated) 1,000 mls @ 125 mls/hr IV ASDIRECTED [facility] Lidocaine/Sodium Bicarbonate (Buffered Lidocaine 1% In Ns 8.4%) 0.25 ml IV ONETIME PRN PRN Reason: Prior to IV Start Sodium Chloride (Saline Flush) 10 ml FLUSH ASDIRECTED PRN PRN Reason: Keep Vein Open
[2017-03-05] MEDS ORDERED: fentaNYL 100 MCG/2 ML SDV ONE (09:03)
[2017-03-05] MEDS ORDERED: Midazolam 1 MG/ML 2 ML SDV ONE (09:03)
[2017-03-05] MEDS ORDERED: Propofol 200 MG/20 ML SDV ONE ×2 (09:03→09:04)
--- NOTE | 2017-03-05 09:20 | PCM48HPAN ---
Post Anesthesia Note - EVALUATION WITHIN 48HRS OF ANESTHETIC Vital Signs in Normal Range: Yes Patient Participated in Evaluation: Yes Respiratory Function Stable: Yes Airway Patent: Yes Cardiovascular Function Stable: Yes Hydration Status Stable: Yes Pain Control Satisfactory: Yes Nausea and Vomiting Control Satisfactory: Yes Mental Status Recovered: Yes
--- NOTE | 2017-03-05 09:21 | PCM.OPNOTE ---
- General Post-Op/Procedure Note Date of Surgery/Procedure: 03/05/17 Operative Procedure(s): EGD with bx and colonoscopy to cecum Pre Op Diagnosis: rectal bleeding and hx of barretts Post-Op Diagnosis: Same Anesthesia Technique: MAC Primary Surgeon: Herber Taylor EBL in mLs: 0 Complications: None Condition: Good
[2017-03-05 09:22] VITALS: BP 95/61
--- NOTE | 2017-03-06 06:55 | OR ---
DATE OF OPERATION: 03/05/2017 SURGEON: Herber Taylor MD PREOPERATIVE DIAGNOSIS: History of Hemphill esophagus. POSTOPERATIVE DIAGNOSIS: History of Hemphill esophagus. OPERATION PERFORMED: Esophagogastroduodenoscopy with biopsy FINDINGS: GE junction at 40 cm. Mild irregularity. Mild small sliding hiatal hernia. I did not see any obvious signs of Hemphill's. The duodenal bulb had flat mucosa. The second portion of the duodenum also was somewhat flat mucosa. Antrum, body and cardia of stomach unremarkable. Balance of esophagus did not show any disease. ANESTHESIA: Done under IV sedation. DESCRIPTION OF PROCEDURE: The patient was taken to the operating room, placed in a supine position, connected to monitoring equipment, given IV sedation and placed in left lateral position. Bite block was inserted and video Olympus gastroscope placed in the posterior oropharynx under direct vision, threaded past the cricopharyngeus down the esophagus into the stomach. Stomach was insufflated and the scope passed through the pylorus to the second portion of the duodenum. Second portion of the duodenum, duodenal bulb showed flattening mucosa. Duodenal bulb was biopsied. No masses or ulcerations were seen. Antrum, body, and cardia of the stomach were viewed. They were unremarkable. J-maneuver showed a small sliding hiatal hernia. Scope was withdrawn from the GE junction. Mild irregularity was noted, but no definite evidence of Hemphill's seen and multiple biopsies of the GE junction was performed. Rest of the esophagus viewed as the scope withdrawn was unremarkable. The patient tolerated the procedure. IV sedation continued for colonoscopy and the specimen sent to Pathology in a labeled container. ESTIMATED BLOOD LOSS: MMODAL /[id number]
--- NOTE | 2017-03-06 06:58 | OR ---
DATE OF OPERATION: 03/05/2017 SURGEON: Herber Taylor MD PREOPERATIVE DIAGNOSIS: Rectal bleeding. POSTOPERATIVE DIAGNOSIS: Rectal bleeding. OPERATION PERFORMED: Colonoscopy to cecum. FINDINGS: Moderate sigmoid diverticulosis and internal hemorrhoids source of bleeding. There were no angiodysplasias, neoplasias, large tumor masses, or ulcerations. ANESTHESIA: Done under IV sedation. DESCRIPTION OF PROCEDURE: The patient having been taken to the endoscopy room and connected to monitoring and given IV sedation for upper GI endoscopy. Sedation was continued for colonoscopy. He was placed in a left lateral position. Perianal area was inspected. There was normal rectal exam which showed good sphincter tone. A video Olympus colonoscope was then introduced into the rectum and threaded up without problem to the cecum, where the appendicular orifice and ileocecal valve was noted. Prep was excellent throughout the colon. [place] cleansing score grade A and the scope was slowly withdrawn showing the cecum, ascending colon, transverse colon, descending colon, sigmoid colon, and rectum. Retroflexed view was done showing internal hemorrhoids source of bleeding. The patient tolerated the procedure, sent to recovery room in a stable condition. We will have him followup with Dr. Uribe. ESTIMATED BLOOD LOSS: MMODAL /[id number]
== END 2017-03-05 10:02 | disposition home or self-care (01) ==
LOC: JD.SDS 07:32
PROVIDERS: ATTEND Surgery
DX: K20.9 Esophagitis, unspecified (principal); K44.9 Diaphragmatic hernia without obstruction or gangrene; K57.30 Diverticulosis of large intestine without perforation or abscess without bleeding; K64.8 Other hemorrhoids; I48.91 Unspecified atrial fibrillation; N40.0 Benign prostatic hyperplasia without lower urinary tract symptoms; I42.9 Cardiomyopathy, unspecified; J44.9 Chronic obstructive pulmonary disease, unspecified; K21.9 Gastro-esophageal reflux disease without esophagitis; I25.2 Old myocardial infarction; I10 Essential (primary) hypertension; E78.00 Pure hypercholesterolemia, unspecified; M19.90 Unspecified osteoarthritis, unspecified site; M10.9 Gout, unspecified; E11.9 Type 2 diabetes mellitus without complications; Z95.0 Presence of cardiac pacemaker; Z90.89 Acquired absence of other organs; Z98.890 Other specified postprocedural states; Z79.01 Long term (current) use of anticoagulants; Z79.899 Other long term (current) drug therapy; Z88.6 Allergy status to analgesic agent; Z87.891 Personal history of nicotine dependence; Z87.01 Personal history of pneumonia (recurrent)
CPT/HCPCS: 36415; 43239; 45378; 85025; 85610; J2250; J3010; J7120; 00810; J2704

== ENCOUNTER 2021-04-26 16:41 | Emergency (ER) | payer MEDICARE, BC ==
[2021-04-26 17:43] VITALS: BP 109/62; PULSE 52
[2021-04-26 18:15] LABS: CORONAVIRUS COVID-19 NAA NEGATIVE (NEGATIVE)
--- NOTE | 2021-04-26 19:42 | CR ---
Chest: Frontal view of the chest was obtained. Comparison: Prior chest x-ray of 01/06/19. Heart size and mediastinum are within normal limits. Bichamber pacemaker is noted. Lungs are clear with no acute parenchymal change. Chronic bony exostosis is noted within the coracoclavicular ligament on the left side. No acute osseous abnormality is appreciated. Impression: 1. Findings as noted above. 2. Nothing acute is seen on frontal chest x-ray. Diagnostic code #2
[2021-04-26] MEDS ORDERED: Levofloxacin 750 MG Tab PO ONE (20:26)
--- NOTE | 2021-04-26 21:09 | EDM.PDOC ---
ED HPI GENERAL MEDICAL PROBLEM - General Chief Complaint: Respiratory Problem Stated Complaint: CHILLS/BODY ACHES Time Seen by Provider: 04/26/21 17:31 Source of Information: Reports: Patient, RN Notes Reviewed History Limitations: Reports: No Limitations - History of Present Illness INITIAL COMMENTS - FREE TEXT/NARRATIVE: Patient is a 70-year-old male presenting to the emergency department with complaints of chills, body aches, and mild shortness of breath. He reports that symptoms came on acutely this afternoon but have since improved. Prior to today he is feeling well. Denies any cough. Patient reports that he was treated approximately 10 days ago for urinary tract infection in the clinic with first Bactrim. He developed a rash from this medication and was changed to cephalexin. He denies any burning with urination or cloudy urine at this time. He was vaccinated with the [employer] Covid vaccine. Patient denies any nausea, vomiting, diarrhea. Treatments SENIOR VISUAL DESIGNER: Reports: Other (see below) Other Treatments SENIOR VISUAL DESIGNER: tylenol Generalized Pain Score (Numeric/FACES): 5 - Related Data Allergies Allergy/AdvReac Type Severity Reaction Status Date / Time No Known Allergies Allergy Verified 09/17/15 17:27 Home Meds: Home Meds Apixaban [Eliquis] 5 mg PO BID 02/07/15 [History] Cyanocobalamin (Vitamin B12) [Vitamin B12] 1,000 mcg PO DAILY 02/07/15 [History] Finasteride [Proscar] 5 mg PO BEDTIME 02/07/15 [History] Glucosamine/D3/Boswellia Eliane [Osteo Bi-Flex Caplet] 2 each PO DAILY 02/07/15 [History] Omeprazole [Prilosec] 40 mg PO DAILY 02/07/15 [History] Tamsulosin [Flomax] 0.4 mg PO BEDTIME 02/07/15 [History] rOPINIRole [Requip] 1 - 2 tab PO BID 09/17/15 [History] Allopurinol [Zyloprim] 100 mg PO DAILY 12/21/16 [History] Diltiazem [Dilacor XR] 240 mg PO DAILY 12/21/16 [History] Dulaglutide [Trulicity] 1.5 mg SQ TH 12/21/16 [History] Losartan [Cozaar] 25 mg PO DAILY 12/21/16 [History] Metoprolol Tartrate 25 mg PO QAM 12/21/16 [History] Metoprolol Tartrate 50 mg PO QPM 12/21/16 [History] Rosuvastatin Calcium [Crestor] 40 mg PO DAILY 12/21/16 [History] Cholecalciferol (Vitamin D3) [Vitamin D3] 2,000 units PO DAILY #30 tablet 12/27/16 [Rx] Mirabegron [Myrbetriq] 25 mg PO DAILY 03/02/17 [History] levoFLOXacin [Levaquin] 750 mg PO Q48H #7 tab 04/26/21 [Rx] Past Medical History HEENT History: Reports: Other (See Below) Other HEENT History: hearing loss Cardiovascular History: Reports: Afib, Cardiomyopathy, High Cholesterol, Hypertension, [place], Pacemaker, Other (See Below) Other Cardiovascular History: aflutter Respiratory History: Reports: COPD, Other (See Below) Other Respiratory History: pnumonia Gastrointestinal History: Reports: GERD, Hiatal Hernia, Other (See Below) Other Gastrointestinal History: barretts esophagus Genitourinary History: Reports: Other (See Below) Other Genitourinary History: enlarged prostate, prostatitis, renal insufficiency LINEMAN A CLASS History: Reports: None Musculoskeletal History: Reports: Arthritis, Gout, Other (See Below) Other Musculoskeletal History: joint pain Neurological History: Reports: None Psychiatric History: Reports: None Endocrine/Metabolic History: Reports: Diabetes, Type II Hematologic History: Reports: Other (See Below) Other Hematologic History: chronic anticoagulation Immunologic History: Reports: None Oncologic (Cancer) History: Reports: None Dermatologic History: Reports: None - Infectious Disease History Infectious Disease History: Reports: Measles, Mumps - Past Surgical History Head Surgeries/Procedures: Reports: None HEENT Surgical History: Reports: Tonsillectomy Cardiovascular Surgical History: Reports: Pacer Respiratory Surgical History: Reports: None GI Surgical History: Reports: Colonoscopy, EGD Male Surgical History: Reports: None Neurological Surgical History: Reports: Laminectomy Other Musculoskeletal Surgeries/Procedures:: neck and back surgery Oncologic Surgical History: Reports: None Dermatological Surgical History: Reports: None Social & Family History - Family History Family Medical History: No Pertinent Family History Cardiac: Reports: Heart Failure : Reports: Cystic Kidney Disease, Other (See Below) Other Family History: renal tranplant x1 brother, 2 brothers r/t polycystic kidney disease - Tobacco Use Tobacco Use Status *Q: Never Tobacco User - Caffeine Use Caffeine Use: Reports: Coffee, Soda - Recreational Drug Use Recreational Drug Use: No ED ROS GENERAL - Review of Systems Review Of Systems: Comprehensive ROS is negative, except as noted in HPI. ED EXAM, GENERAL - Physical Exam Exam: See Below Exam Limited By: No Limitations General Appearance: Alert, WD/WN, No Apparent Distress Respiratory/Chest: No Respiratory Distress, Lungs Clear, Normal Breath Sounds, No Accessory Muscle Use, Chest Non-Tender Cardiovascular: Normal Peripheral Pulses, Regular Rate, Rhythm, No Edema, No Gallop, No JVD, No Murmur, No Rub GI/Abdominal: Normal Bowel Sounds, Soft, Non-Tender, No Organomegaly, No Distention, No Abnormal Bruit, No Mass Back Exam: Normal Inspection, Full Range of Motion. No: CVA Tenderness (L), CVA Tenderness (R) Neurological: Alert, Oriented, CN II-XII Intact, Normal Cognition, Normal Gait, Normal Reflexes, No Motor/Sensory Deficits Psychiatric: Normal Affect, Normal Mood Skin Exam: Warm, Dry, Intact, Normal Color, No Rash Course - Vital Signs Last Recorded V/S: Last Vital Signs Temp 99.6 F 04/26/21 17:41 Pulse 52 L 04/26/21 17:41 Resp 20 04/26/21 17:41 BP 109/62 04/26/21 17:41 Pulse Ox 93 L 04/26/21 17:41 - Orders/Labs/Meds Labs: Laboratory Tests 04/26/21 04/26/21 04/26/21 Range/Units 17:30 18:15 18:15 WBC 14.79 H (4.23-9.07) K/mm3 RBC 3.66 L (4.63-6.08) M/mm3 Hgb 10.8 L D (13.7-17.5) gm/dl Hct 33.7 L (40.1-51.0) % MCV 92.1 (79.0-92.2) fl MCH 29.5 (25.7-32.2) pg MCHC 32.0 L (32.2-35.5) g/dl RDW Std Deviation 47.5 H (35.1-43.9) fL Plt Count 178 (163-337) K/mm3 MPV 9.7 (9.4-12.3) fl Neut % (Auto) 91.7 H (34.0-67.9) % Lymph % (Auto) 2.2 L (21.8-53.1) % [place] % (Auto) 5.8 (5.3-12.2) % Eos % (Auto) 0.2 L (0.8-7.0) Baso % (Auto) 0.0 L (0.1-1.2) % Neut # (Auto) 13.56 H (1.78-5.38) K/mm3 Lymph # (Auto) 0.32 L (1.32-3.57) K/mm3 [place] # (Auto) 0.86 H (0.30-0.82) K/mm3 Eos # (Auto) 0.03 L (0.04-0.54) K/mm3 Baso # (Auto) 0.00 L (0.01-0.08) K/mm3 Manual Slide Review Abnormal smear Sodium 138 (136-145) mEq/L Potassium 4.5 (3.5-5.1) mEq/L Chloride 106 (98-107) mEq/L Carbon Dioxide 22 (21-32) mEq/L Anion Gap 14.5 (5-15) BUN 22 H (7-18) mg/dL Creatinine 1.6 H (0.7-1.3) mg/dL Est Cr Clr Drug Dosing 44.19 mL/min Estimated GFR (MDRD) 43 (>60) mL/min BUN/Creatinine Ratio 13.8 L (14-18) Glucose 161 H (70-99) mg/dL Lactic Acid (0.4-2.0) mmol/L Calcium 8.7 (8.5-10.1) mg/dL Total Bilirubin 0.6 (0.2-1.0) mg/dL AST 12 L (15-37) U/L ALT 16 (16-63) U/L Alkaline Phosphatase 116 (46-116) U/L C-Reactive Protein 5.9 H* (<1.0) mg/dL Total Protein 6.1 L (6.4-8.2) g/dl Albumin 3.1 L (3.4-5.0) g/dl Globulin 3.0 gm/dL Albumin/Globulin Ratio 1.0 (1-2) Urine Color (Yellow) Urine Appearance (Clear) Urine pH (5.0-8.0) Ur Specific [place] (1.005-1.030) Urine Protein (Negative) Urine Glucose (UA) (Negative) Urine Ketones (Negative) Urine Occult Blood (Negative) Urine Nitrite (Negative) Urine Bilirubin (Negative) Urine Urobilinogen (0.2-1.0) Ur Leukocyte Esterase (Negative) Urine RBC (0-5) /hpf Urine WBC (0-5) /hpf Ur Squamous Epith Cells (0-5) /hpf Urine Bacteria (FEW) /hpf Urine Mucus (FEW) /hpf Influenza Type A RNA Negative (NEGATIVE) Influenza Type B RNA Negative (NEGATIVE) SARS-CoV-2 RNA (TOPHER) Negative (NEGATIVE) 04/26/21 04/26/21 Range/Units 18:56 19:45 WBC (4.23-9.07) K/mm3 RBC (4.63-6.08) M/mm3 Hgb (13.7-17.5) gm/dl Hct (40.1-51.0) % MCV (79.0-92.2) fl MCH (25.7-32.2) pg MCHC (32.2-35.5) g/dl RDW Std Deviation (35.1-43.9) fL Plt Count (163-337) K/mm3 MPV (9.4-12.3) fl Neut % (Auto) (34.0-67.9) % Lymph % (Auto) (21.8-53.1) % [place] % (Auto) (5.3-12.2) % Eos % (Auto) (0.8-7.0) Baso % (Auto) (0.1-1.2) % Neut # (Auto) (1.78-5.38) K/mm3 Lymph # (Auto) (1.32-3.57) K/mm3 [place] # (Auto) (0.30-0.82) K/mm3 Eos # (Auto) (0.04-0.54) K/mm3 Baso # (Auto) (0.01-0.08) K/mm3 Manual Slide Review Sodium (136-145) mEq/L Potassium (3.5-5.1) mEq/L Chloride (98-107) mEq/L Carbon Dioxide (21-32) mEq/L Anion Gap (5-15) BUN (7-18) mg/dL Creatinine (0.7-1.3) mg/dL Est Cr Clr Drug Dosing mL/min Estimated GFR (MDRD) (>60) mL/min BUN/Creatinine Ratio (14-18) Glucose (70-99) mg/dL Lactic Acid 1.3 (0.4-2.0) mmol/L Calcium (8.5-10.1) mg/dL Total Bilirubin (0.2-1.0) mg/dL AST (15-37) U/L ALT (16-63) U/L Alkaline Phosphatase (46-116) U/L C-Reactive Protein (<1.0) mg/dL Total Protein (6.4-8.2) g/dl Albumin (3.4-5.0) g/dl Globulin gm/dL Albumin/Globulin Ratio (1-2) Urine Color Yellow (Yellow) Urine Appearance Cloudy H (Clear) Urine pH 6.0 (5.0-8.0) Ur Specific [place] 1.025 (1.005-1.030) Urine Protein 2+ H (Negative) Urine Glucose (UA) Negative (Negative) Urine Ketones Negative (Negative) Urine Occult Blood 3+ H (Negative) Urine Nitrite Negative (Negative) Urine Bilirubin Negative (Negative) Urine Urobilinogen 0.2 (0.2-1.0) Ur Leukocyte Esterase 2+ H (Negative) Urine RBC 10-20 H (0-5) /hpf Urine WBC 50-75 H (0-5) /hpf Ur Squamous Epith Cells 0-5 (0-5) /hpf Urine Bacteria Few (FEW) /hpf Urine Mucus Few (FEW) /hpf Influenza Type A RNA (NEGATIVE) Influenza Type B RNA (NEGATIVE) SARS-CoV-2 RNA (TOPHER) (NEGATIVE) Meds: Medications Discontinued Medications Generic Name Dose Route Start Last Admin Trade Name Freq PRN Reason Stop Dose Admin Levofloxacin 750 mg 04/26/21 20:26 04/26/21 21:35 Levofloxacin 750 Mg Tab PO 04/26/21 20:27 750 mg ONETIME ONE Administration - Re-Assessments/Exams Free Text/Narrative Re-Assessment/Exam: Patient is a 70-year-old male presenting to the emergency department with complaints of chills, body aches, and slight shortness of breath. Symptoms came on acutely this afternoon. They have since improved. On arrival to ER, patient had low-grade fever 99.6. Oxygen saturation initially 93% but is currently saturating 96% on room air. Exam is unremarkable. I have ordered blood work, chest x-ray, and Covid and influenza testing. 04/26/21 1840 Hematology significant for WBC elevated at 14.79, hemoglobin 10.8, BUN 22, creatinine 1.6, glucose 161, CRP 5.9. Patient has not provided a urine sample thus far. I have added on blood cultures and lactic acid. Covid and influenza are negative. I suspect patient has ongoing urinary tract infection. 04/26/21 21:08 Urinalysis is significant for 2+ leukocyte esterase, 10-20 RBCs and 50-75 WBCs. I suspect patient may have underlying prostatitis which did not resolve with his 5-day course of cephalexin. I will start patient on Levaquin at a renal dose of 750 mg every other day for 2 weeks. Recommend follow-up with his primary care provider in 10 days for reevaluation and to have antibiotics continued as a see appropriate. Discussed return precautions. Discharge instructions as documented. Departure - Departure Time of Disposition: 21:08 Disposition: Home, Self-Care 01 Condition: Good Clinical Impression: Urinary tract infection - Discharge Information *PRESCRIPTION DRUG MONITORING PROGRAM REVIEWED*: No *COPY OF PRESCRIPTION DRUG MONITORING REPORT IN PATIENT ANGELA: No Prescriptions: levoFLOXacin [Levaquin] 750 mg PO Q48H #7 tab Instructions: Urinary Tract Infection, Adult, [id number] Referrals: Harry Little MD [Primary Care Provider] - Forms: ED Department Discharge Additional Instructions: Take Levaquin as prescribed. First dose was given in ER. Follow-up with primary care provider in 10 days. Return to ER for any new or worsening symptoms.
== END 2021-04-26 21:45 | disposition home or self-care (01) ==
LOC: JD.ED 16:41
DX: N39.0 Urinary tract infection, site not specified (principal); J44.9 Chronic obstructive pulmonary disease, unspecified; K21.9 Gastro-esophageal reflux disease without esophagitis; M10.9 Gout, unspecified; I11.9 Hypertensive heart disease without heart failure; I25.2 Old myocardial infarction; I48.91 Unspecified atrial fibrillation; E11.9 Type 2 diabetes mellitus without complications; Z95.0 Presence of cardiac pacemaker; Z79.01 Long term (current) use of anticoagulants; Z79.899 Other long term (current) drug therapy; Z20.822 Contact with and (suspected) exposure to COVID-19
CPT/HCPCS: 0240U; 36415; 71045; 71045-26; 80053; 81001; 83605; 85025; 86140; 87040; 87086; 87088; 87186; 99283-25; A9270-GY

== ENCOUNTER 2024-01-24 08:08 | Day surgery (SDC) | payer MEDICARE, OTHER ==
[~2024-01-24 08:08] MED LIST changes: -Lactated Ringers 1,000 ML IV SCH; -Lidocaine 1%/Sod Bicarbonate in NS 8.4% 1 ML Syringe IV PRN; +Sodium Chloride 0.9% 10 ML Syringe FLUSH SCH
[2024-01-24] MEDS: Lactated Ringers 1,000 ML IV SCH (08:40)
[2024-01-24] MEDS ORDERED: Ondansetron 4 MG/2 ML SDV IVPUSH ONE (09:00)
[2024-01-24] MEDS ORDERED: Propofol 200 MG/20 ML SDV ONE ×4 (09:22→09:46)
[2024-01-24 11:21] VITALS: BP 137/74; PULSE 60
== END 2024-01-24 11:08 | disposition home or self-care (01) ==
LOC: JD.SDS 08:08
PROVIDERS: ATTEND Surgery
DX: D12.2 Benign neoplasm of ascending colon (principal); D12.3 Benign neoplasm of transverse colon; D12.4 Benign neoplasm of descending colon; D12.5 Benign neoplasm of sigmoid colon; K21.00 Gastro-esophageal reflux disease with esophagitis, without bleeding; K44.9 Diaphragmatic hernia without obstruction or gangrene; K57.30 Diverticulosis of large intestine without perforation or abscess without bleeding; K64.8 Other hemorrhoids; K64.4 Residual hemorrhoidal skin tags; E11.9 Type 2 diabetes mellitus without complications; J44.9 Chronic obstructive pulmonary disease, unspecified; I10 Essential (primary) hypertension; E78.00 Pure hypercholesterolemia, unspecified; Z79.84 Long term (current) use of oral hypoglycemic drugs; Z79.899 Other long term (current) drug therapy; Z87.891 Personal history of nicotine dependence
CPT/HCPCS: 43239; 45385; J2704; J7120; 00813

== ENCOUNTER 2024-07-15 18:53 | Inpatient (IN) | payer MEDICARE ==
[2024-07-15 19:57] LABS: BASOPHILS PERCENT AUTO 0.1 % (0.0-1.0); EOSINOPHILS PERCENT AUTO 0.3 % (0.0-6.0); HEMATOCRIT 35.5 % (42.0-52.0); HEMOGLOBIN 11.3 gm/dl (14.0-18.0); IMMATURE GRAN ABSOLUTE AUTO 0.02 K/mm3 (0.00-0.05); IMMATURE GRAN PERCENT AUTO 0.3 % (0.0-0.4); LYMPHOCYTES ABSOLUTE AUTO 0.4 K/mm3 (1.0-4.8); LYMPHOCYTES PERCENT AUTO 5.8 % (24.0-44.0); MEAN CORPUSCULAR HGB CONC 31.8 g/dl (32.0-36.0); MEAN CORPUSCULAR VOLUME 91.3 fl (83.0-99.0); MEAN PLATELET VOLUME 9.8 fl (9.4-12.4); MONOCYTES ABSOLUTE AUTO 0.5 K/mm3 (0.0-0.8); MONOCYTES PERCENT AUTO 6.3 % (0.0-8.0); NEUTROPHILS ABSOLUTE AUTO 6.6 K/mm3 (1.8-7.7); NEUTROPHILS PERCENT AUTO 87.2 % (41.0-71.0); PLATELET COUNT,PLT 154 K/mm3 (150-400); RED BLOOD CELL COUNT 3.89 M/mm3 (4.52-5.90); WHITE BLOOD CELL COUNT,WBC 7.56 K/mm3 (3.9-11.3)
[2024-07-15] MEDS: methylPREDNISolone Sodium Succinate 125 MG/2 ML SDV IVPUSH ONE (19:58)
[2024-07-15] MEDS: Sodium Chloride 0.9% 10 ML Syringe FLUSH PRN (19:58)
[2024-07-15 20:29] LABS: LACTIC ACID 1.1 mmol/L (0.4-2.0)
[2024-07-15] MEDS: Albuterol/Ipratropium 3.0-0.5 MG/3 ML Neb Soln NEB SCH (20:29)
[2024-07-15 20:30] LABS: ALBUMIN 3.5 g/dl (3.4-5.0); ANION GAP 13.5 (5-15); BILIRUBIN TOTAL 0.6 mg/dL (0.2-1.0); BUN/CREATININE RATIO 10.6 (14-18); CALCIUM 9.3 mg/dL (8.5-10.1); CREATININE 1.6 mg/dL (0.7-1.3); EST CRCL DRUG DOSING (CG) 42.35 mL/min; MAGNESIUM 1.6 mg/dL (1.8-2.4); POTASSIUM,K 4.5 mEq/L (3.5-5.1); PROTEIN TOTAL,TP 7.1 g/dl (6.4-8.2)
[2024-07-15] MEDS: Furosemide 40 MG/4 ML VIAL IVPUSH ONE (22:38)
[2024-07-15] MEDS: cefTRIAXone 1 GM Vial IVPUSH ONE (22:38)
[2024-07-15] MEDS: Doxycycline Monohydrate 100 MG Cap PO ONE (22:38)
[2024-07-16] MEDS ORDERED: Melatonin 3 MG Tab PO PRN (07:19)
[2024-07-16] MEDS ORDERED: Polyethylene Glycol 3350 Powder 17 GM Packet PO PRN (07:19)
[2024-07-16] MEDS ORDERED: 50% Dextrose in Water 50 ML Syringe IVPUSH PRN (07:24)
[2024-07-16] MEDS: Insulin Lispro 100 Unit/ML 3 ML KwikPen SUBCUT SCH (07:51)
[2024-07-16] MEDS: Diltiazem 240 MG Cap.ER PO SCH (09:26)
[2024-07-16] MEDS: Rosuvastatin 10 MG Tab PO SCH (09:26)
[2024-07-16] MEDS: Doxycycline Monohydrate 100 MG Cap PO SCH (09:27)
[2024-07-16] MEDS: Metoprolol Succinate 50 MG Tab.ER PO SCH (09:27)
[2024-07-16] MEDS: Apixaban 5 MG Tab PO SCH (09:28)
[2024-07-16] MEDS: Gabapentin 100 MG Cap PO SCH (09:28)
[2024-07-16] MEDS: rOPINIRole 1 MG Tab PO SCH (09:28)
[2024-07-16] MEDS: Furosemide 40 MG/4 ML VIAL IVPUSH ONE (11:26)
[2024-07-16] MEDS: cefTRIAXone 1 GM Vial IVPUSH SCH (21:05)
[2024-07-16] MEDS: Acetaminophen 325 MG Tab PO PRN (21:18)
[2024-07-17 04:46] LABS: BASOPHILS PERCENT AUTO 0.1 % (0.0-1.0); HEMATOCRIT 33.7 % (42.0-52.0); HEMOGLOBIN 10.9 gm/dl (14.0-18.0); IMMATURE GRAN ABSOLUTE AUTO 0.05 K/mm3 (0.00-0.05); IMMATURE GRAN PERCENT AUTO 0.5 % (0.0-0.4); LYMPHOCYTES ABSOLUTE AUTO 0.4 K/mm3 (1.0-4.8); LYMPHOCYTES PERCENT AUTO 3.4 % (24.0-44.0); MEAN CORPUSCULAR HEMOGLOBIN 29.3 pg (28.0-32.0); MEAN CORPUSCULAR HGB CONC 32.3 g/dl (32.0-36.0); MEAN CORPUSCULAR VOLUME 90.6 fl (83.0-99.0); MONOCYTES ABSOLUTE AUTO 0.7 K/mm3 (0.0-0.8); MONOCYTES PERCENT AUTO 7.2 % (0.0-8.0); NEUTROPHILS ABSOLUTE AUTO 9.2 K/mm3 (1.8-7.7); NEUTROPHILS PERCENT AUTO 88.8 % (41.0-71.0); PLATELET COUNT,PLT 171 K/mm3 (150-400); RED BLOOD CELL COUNT 3.72 M/mm3 (4.52-5.90); WHITE BLOOD CELL COUNT,WBC 10.33 K/mm3 (3.9-11.3)
[2024-07-17 05:19] LABS: A/G RATIO 0.9 (1-2); ALBUMIN 3.2 g/dl (3.4-5.0); BILIRUBIN TOTAL 0.4 mg/dL (0.2-1.0); C-REACTIVE PROTEIN 6.04 mg/dL (<0.30); CALCIUM 9.4 mg/dL (8.5-10.1); CREATININE 1.5 mg/dL (0.7-1.3); EST CRCL DRUG DOSING (CG) 45.17 mL/min; PROTEIN TOTAL,TP 6.7 g/dl (6.4-8.2)
[2024-07-17] MEDS: Allopurinol 100 MG Tab PO SCH (08:38)
[2024-07-17 09:52] VITALS: BP 124/74; PULSE 77
== END 2024-07-17 11:42 | disposition home or self-care (01) | DRG 193 ==
LOC: JD.ED 18:53 → JD.MS 22:17
PROVIDERS: ADMIT Family Medicine; ATTEND Family Medicine
DX: J18.9 Pneumonia, unspecified organism (principal); J96.01 Acute respiratory failure with hypoxia; I42.9 Cardiomyopathy, unspecified; I48.92 Unspecified atrial flutter; J44.0 Chronic obstructive pulmonary disease with (acute) lower respiratory infection; I11.0 Hypertensive heart disease with heart failure; I50.9 Heart failure, unspecified; H91.90 Unspecified hearing loss, unspecified ear; R07.89 Other chest pain; I25.2 Old myocardial infarction; M19.90 Unspecified osteoarthritis, unspecified site; M10.9 Gout, unspecified; E78.00 Pure hypercholesterolemia, unspecified; I48.0 Paroxysmal atrial fibrillation; I48.91 Unspecified atrial fibrillation; Z88.1 Allergy status to other antibiotic agents; J44.9 Chronic obstructive pulmonary disease, unspecified; K21.9 Gastro-esophageal reflux disease without esophagitis; E11.9 Type 2 diabetes mellitus without complications; Z79.899 Other long term (current) drug therapy; Z95.0 Presence of cardiac pacemaker; Z87.19 Personal history of other diseases of the digestive system; Z90.89 Acquired absence of other organs; Z98.890 Other specified postprocedural states; Z79.01 Long term (current) use of anticoagulants; Z79.84 Long term (current) use of oral hypoglycemic drugs; Z88.2 Allergy status to sulfonamides
CPT/HCPCS: 36415; 71045; 80053; 83605; 83690; 83735; 83880; 84484; 85025; 87040 ×2; 87428; 93005; 94640 ×2; 96374; 99285; J2919; 82947; 86140; 93010; 93306; 94761; 97116-GP; 97162-GP; A9270-GY; J0696; J1815; J1940; J7620-GY